=== PATIENT | female | born 1945 | race Caucasian/White ===

== ENCOUNTER → 2020-05-23 13:20 | Outpatient (BNVA) | payer MEDICARE, SELFPAY | PROVIDERS: Visit Provider Internal Medicine | DX: A49.01 Methicillin susceptible Staphylococcus aureus infection, unspecified site (principal); T84.59XA Infection and inflammatory reaction due to other internal joint prosthesis, initial encounter; E11.65 Type 2 diabetes mellitus with hyperglycemia; Z79.899 Other long term (current) drug therapy | CPT/HCPCS: 99212 ==

== ENCOUNTER → 2020-06-27 14:07 | Outpatient (BNVA) | payer MEDICARE, SELFPAY | PROVIDERS: Visit Provider Internal Medicine Cardiovascular Disease | DX: R60.0 Localized edema (principal); I51.89 Other ill-defined heart diseases; I25.10 Atherosclerotic heart disease of native coronary artery without angina pectoris; Z79.82 Long term (current) use of aspirin; Z79.899 Other long term (current) drug therapy | CPT/HCPCS: 99212 ==

== ENCOUNTER 2020-06-28 07:18 | Outpatient (REF) | payer MEDICARE, SELFPAY ==
[2020-06-28 11:44] LABS: B Type Natriuretic Peptide 56 pg/mL (<100)
[2020-06-28 12:05] LABS: Anion Gap 14 (12-20); Blood Urea Nitrogen 26 mg/dL (9-16); Calcium 8.9 mg/dL (8.4-10.2); Carbon Dioxide 25 mmol/L (22-29); Chloride 108 mmol/L (96-108); Estimated Glomerular Filt Rate > 60; Glucose Random 126 mg/dL (60-115); Potassium 4.3 mmol/l (3.3-5.1); Sodium 143 mmol/L (135-145)
== END 2020-06-28 07:19 | disposition home or self-care (01) ==
LOC: HO.WFDLDS 07:18
PROVIDERS: Visit Provider Internal Medicine Cardiovascular Disease
DX: I50.30 Unspecified diastolic (congestive) heart failure (principal); R60.0 Localized edema; I10 Essential (primary) hypertension
CPT/HCPCS: 80048; 83880

== ENCOUNTER → 2020-09-08 13:21 | Outpatient (BNVA) | payer MEDICARE, SELFPAY | PROVIDERS: PCP Internal Medicine; Visit Provider Surgery Vascular Surgery | DX: R60.0 Localized edema (principal); I83.11 Varicose veins of right lower extremity with inflammation; Z89.431 Acquired absence of right foot | CPT/HCPCS: 99212 ==

== ENCOUNTER 2020-09-13 10:04 | Outpatient (REF) | payer MEDICARE, SELFPAY ==
--- NOTE | ~2020-09-13 | US_ITS ---
EXAMINATION: RIGHT and LEFT LOWER EXTREMITY VENOUS ULTRASOUND (Reflux Exam) CLINICAL INDICATION: leg pain and varicose veins. COMPARISON: None. TECHNIQUE: Color flow triplex imaging and compression Doppler was performed to evaluate both the deep and the superficial systems bilaterally. To evaluate the superficial system, the examination was performed in the upright position. Color-flow Doppler ultrasound and compression ultrasound were utilized. In addition, maneuvers were utilized to demonstrate reflux. FINDINGS: 1. DEEP VENOUS ULTRASOUND OF THE RIGHT LOWER EXTREMITY: Respiratory variation, normal compression and augmented flow are noted in the right common femoral vein as well as the right popliteal vein and there is no evidence of deep venous thrombosis at these locations. There is no evidence of reflux in the deep system in either the common femoral vein or the popliteal vein. There is no evidence of a Mcneil's cyst. 2. SUPERFICIAL ULTRASOUND WITH DOPPLER OF RIGHT LOWER EXTREMITY: The right great saphenous vein at the saphenofemoral junction measures 1 mm, at the mid thigh 5 mm, [id number]-[id number] 5 mm, xvich-bun-iijc 3 mm, at mid calf 4 mm and at the ankle measures 4 mm. There is right greater saphenous vein reflux measuring 1.5 seconds at the mid thigh, 1.4 seconds below the knee, 0.9 seconds in the mid calf and 1 seconds at the ankle. The right small saphenous vein measures 1-2 mm and shows no reflux. There is an accessory lateral greater saphenous vein that measures 4 mm and does not demonstrate reflux. There is a geographic information systems manager in the mid thigh that measures 3 mm and does not demonstrate reflux. There is a varicosity at the knee that measures 3 mm and does not demonstrate reflux. There is a right Mcneil's cyst measuring 2.9 x 1.6 x 1.7 cm. 3. DEEP VENOUS ULTRASOUND OF THE LEFT LOWER EXTREMITY: Respiratory variation, normal compression and augmented flow are noted in the left common femoral vein as well as the left popliteal vein and there is no evidence of deep venous thrombosis at these locations. There is no evidence of reflux in the deep system in either the common femoral vein or the popliteal vein. . There is no evidence of a Mcneli's cyst. 4. SUPERFICIAL ULTRASOUND WITH DOPPLER OF LEFT LOWER EXTREMITY: Left great saphenous vein at the saphenofemoral junction measures 11 mm, at the mid thigh 5 mm, [id number] 4 mm, kybep-exr-dlhe 4 mm, at mid calf 4 mm and at the ankle measures 3 mm. There is no reflux demonstrated in the left great saphenous vein. The left small saphenous vein measures 2-4 mm and shows no reflux. There is a accessory lateral greater saphenous vein that measures 4 mm and does not demonstrate reflux. There are perforators in the proximal thigh and proximal calf measuring 2 and 3 mm that do not demonstrate reflux. There is a complex Mcneil's cyst measuring 5 x 1.7 x 4.1 cm. There is edema of the soft tissues of the left lower leg. US/US venous duplex LE BI IMPRESSION: 1. No evidence of reflux or thrombus in the common femoral veins or popliteal veins bilaterally. 2. right greater saphenous vein reflux. No left saphenous vein reflux seen. Bilateral Mcneil's cysts, left greater than right.
== END 2020-09-13 10:05 | disposition home or self-care (01) ==
LOC: HO.US 10:04
PROVIDERS: Visit Provider Surgery Vascular Surgery
DX: I83.893 Varicose veins of bilateral lower extremities with other complications (principal); I83.11 Varicose veins of right lower extremity with inflammation
CPT/HCPCS: 93970

== ENCOUNTER → 2020-09-27 12:50 | Outpatient (BNVA) | payer MEDICARE, SELFPAY | PROVIDERS: PCP Internal Medicine; Visit Provider Surgery Vascular Surgery | DX: R60.0 Localized edema (principal) | CPT/HCPCS: 99212 ==

== ENCOUNTER 2020-09-28 08:00 | Outpatient (REF) | payer MEDICARE, SELFPAY ==
[2020-09-28 11:19] LABS: MANUAL DIFF FLAG NO
[2020-09-28 11:33] LABS: Basophils Percent Auto 0.4 % (0-2); Eosinophils Percent Auto 0.4 % (0-4); Hematocrit 33.5 % (37-47); Hemoglobin 10.7 g/dl (12.0-16.0); Imm Gran Abs Auto 0.01 X10*3/uL (0.00-0.03); Imm Gran Pct Auto 0.2 % (0.0-0.4); Immature Retic Fraction 15.5 % (3.0-15.9); Lymphocytes Percent Auto 18.8 % (20-40); Mean Corpuscular HGB Conc 31.9 g/dl (31.0-35.0); Mean Corpuscular Hemoglobin 28.3 pg (27.0-33.0); Mean Corpuscular Volume 88.6 fL (80-98); Mean Platelet Volume 10.2 fL (9.4-12.3); Monocytes Absolute Auto 0.4 X10*3/uL (0.1-1.2); Monocytes Percent Auto 7.2 % (2-11); Neutrophils Absolute Auto 4.1 X10*3/uL (2.0-8.3); Platelet Count 186 X10*3/uL (160-400); Red Blood Count 3.78 X10*6/uL (4.20-5.50); Red Cell Distribution Width 13.6 % (11.0-16.0); Retic HGB Equivalent 32.8 pg (30.0-35.0); Reticulocyte Percent 2.7 % (0.5-1.8); Reticulocytes Absolute 0.102 X10*6/uL (0.026-0.095); White Blood Count 5.5 X10*3/uL (4.8-10.8)
[2020-09-28 11:43] LABS: Estimated Average Glucose 143 mg/dL; Hemoglobin A1c % 6.6 %
[2020-09-28 11:56] LABS: Cholesterol 152 mg/dL; HDL Cholesterol 48 mg/dL; Iron 67 mcg/dL (30-160); LDL Cholesterol Calculated 79 mg/dl; Percent Iron Saturation 24 % (15-50); Total Iron Binding Capacity 283 mcg/dL (228-428); Triglycerides 125 mg/dL; Unsaturated Iron Binding 216 ug/dL
[2020-09-28 12:27] LABS: Free T4 (Free Thyroxine) 1.58 ng/dL (0.71-1.85); Thyroid Stimulating Hormone 0.26 uIU/mL (0.32-4.0)
[2020-09-28 13:08] LABS: Ferritin 126 ng/mL (10-250)
[2020-09-29 19:39] LABS: Vitamin B12 394 pg/mL (200-900)
== END 2020-09-28 08:01 | disposition home or self-care (01) ==
LOC: HO.WFDLDS 08:00
PROVIDERS: Visit Provider Internal Medicine
DX: I10 Essential (primary) hypertension (principal); E03.9 Hypothyroidism, unspecified; E78.00 Pure hypercholesterolemia, unspecified; E11.65 Type 2 diabetes mellitus with hyperglycemia
CPT/HCPCS: 36415; 80061; 82607; 82728; 82746; 83036; 83540; 84439; 84443; 85025; 85045

== ENCOUNTER → 2020-10-14 09:27 | Outpatient (BNVA) | payer MEDICARE, SELFPAY | PROVIDERS: PCP Internal Medicine; Visit Provider Internal Medicine Cardiovascular Disease | DX: I25.10 Atherosclerotic heart disease of native coronary artery without angina pectoris (principal) | CPT/HCPCS: 99212 ==

== ENCOUNTER 2021-01-26 09:14 | Outpatient (REF) | payer MEDICARE, SELFPAY ==
--- NOTE | ~2021-01-26 | MM_ITS ---
EXAMINATION: MM SCREENING DIGITAL BREAST TOMOSYNTHESIS, BILATERAL CLINICAL INFORMATION: Screening. Asymptomatic. The lifetime risk of breast cancer based on the Tyrer-Cuzick Model is 4%. COMPARISON: Mammography: 12/11/2018, 02/19/2017, 02/02/2016 TECHNIQUE: Digital breast tomosynthesis is performed in both the craniocaudal and mediolateral oblique views along with computer-aided detection (CAD). Synthesized 2D images are generated from the tomosynthesis. FINDINGS: There are scattered areas of fibroglandular density (ACR BI-RADS breast composition Category b). The left breast has new focal asymmetric density with irregular margins posterior 9:30 o'clock position measuring 0.9 x 0.6 x 0.3 cm. Patient will be recalled for additional imaging. The remainder of the bilateral breasts show no interval mass or developing density or architectural abnormality. Again, there are bilateral vascular and some scattered round and ductal secretory calcifications. The axilla and skin contours are unremarkable. MM/MM tomosynthesis screening BI IMPRESSION: 1. Left: New focal asymmetric density posterior inner quadrant under 1 cm. 2. Right: No mammographic evidence of malignancy. ASSESSMENT: BI-RADS 0: Incomplete - Need Additional Imaging Evaluation RECOMMENDATION: 1. Additional views of the left breast (3-D spot CC, 3-D spot ML). 2. Targeted ultrasound left breast. 3. Radiology department staff will contact the patient for additional imaging. This patient's information was entered into a reminder system with a target due date for their next mammogram.
== END 2021-01-26 09:15 | disposition home or self-care (01) ==
LOC: HO.MAMMO 09:14
PROVIDERS: PCP Internal Medicine; Visit Provider Internal Medicine
DX: Z12.31 Encounter for screening mammogram for malignant neoplasm of breast (principal)
CPT/HCPCS: 77063; 77067

== ENCOUNTER 2021-02-21 11:38 | Outpatient (REF) | payer MEDICARE, SELFPAY ==
--- NOTE | ~2021-02-21 | MM_ITS ---
EXAMINATION: MM DIAGNOSTIC DIGITAL BREAST TOMOSYNTHESIS, LEFT US DIAGNOSTIC ULTRASOUND BREAST, LEFT CLINICAL INFORMATION: Recall from screening for focal asymmetric density posterior inner quadrant left breast. COMPARISON: Mammography: 01/26/2021, 12/11/2018 TECHNIQUE: Digital breast tomosynthesis is performed. 2D images are generated from the tomosynthesis. The following views are obtained: Spot CC x0, spot ML x3, MLO. Ultrasound left breast is targeted to the inner quadrant. Grayscale imaging and color Doppler are performed without and with harmonics. FINDINGS: There are scattered areas of fibroglandular density (ACR BI-RADS breast composition Category b). The additional views show no persistent focal asymmetric density. There is no mass or architectural abnormality. Ultrasound demonstrates no cystic or solid mass or architectural abnormality. Results are discussed with the patient at time of visit. As a precaution, short interval six-month follow-up left mammography will be recommended to exclude remote possibility of an occult developing density in the area of recent interest. MM/MM tomosynthesis added views L IMPRESSION: 1. Additional mammographic views show no persistent focal asymmetric density. 2. Unremarkable targeted left breast ultrasound. ASSESSMENT: BI-RADS 3: Probably Benign RECOMMENDATION: Diagnostic left mammography in 6 months. This patient's information was entered into a reminder system with a target due date for their next mammogram.
== END 2021-02-21 11:39 | disposition home or self-care (01) ==
LOC: HO.MAMMO 11:38
PROVIDERS: Visit Provider Internal Medicine
DX: R92.2 Inconclusive mammogram (principal)
CPT/HCPCS: 76642; 77061; 77065

== ENCOUNTER 2021-10-24 09:16 | Outpatient (REF) | payer MEDICARE, SELFPAY ==
--- NOTE | ~2021-10-24 | MM_ITS ---
EXAMINATION: MM DIAGNOSTIC DIGITAL BREAST TOMOSYNTHESIS, LEFT CLINICAL INFORMATION: Six-month follow-up left breast density COMPARISON: Mammography: February 21, 2021 and studies dating back to July 22, 2012 TECHNIQUE: Digital breast tomosynthesis is performed in both the craniocaudal and mediolateral oblique views along with computer-aided detection (CAD). Synthesized 2D images are generated from the tomosynthesis. FINDINGS: The breasts are almost entirely fatty (ACR BI-RADS breast composition Category a). There are no significant masses, abnormal calcifications, or other abnormalities. Results are provided to the patient at time of visit by the technologist. MM/MM tomosynthesis diagnostic LT IMPRESSION: No mammographic evidence of malignancy. ASSESSMENT: BI-RADS 1: Negative RECOMMENDATION: Routine annual mammography screening, due in 6 months. This patient's information was entered into a reminder system with a target due date for their next mammogram.
== END 2021-10-24 09:17 | disposition home or self-care (01) ==
LOC: HO.MAMMO 09:16
PROVIDERS: PCP Internal Medicine; Visit Provider Internal Medicine
DX: R92.2 Inconclusive mammogram (principal)
CPT/HCPCS: 77061; 77065

== ENCOUNTER 2022-01-03 09:44 | Outpatient (REF) | payer MEDICARE, SELFPAY ==
[2022-01-03 11:05] LABS: MANUAL DIFF FLAG NO
[2022-01-03 11:34] LABS: Basophils Percent Auto 0.2 % (0-2); Hemoglobin 11.1 g/dl (12.0-16.0); Imm Gran Abs Auto 0.02 X10*3/uL (0.00-0.03); Imm Gran Pct Auto 0.3 % (0.0-0.4); Lymphocytes Absolute Auto 0.9 X10*3/uL (1.2-4.9); Lymphocytes Percent Auto 14.7 % (20-40); Mean Corpuscular HGB Conc 32.6 g/dl (31.0-35.0); Mean Corpuscular Volume 91.9 fL (80.0-98.0); Mean Platelet Volume 10.7 fL (9.4-12.3); Monocytes Absolute Auto 0.4 X10*3/uL (0.1-1.2); Monocytes Percent Auto 6.6 % (2-11); Neutrophils Percent Auto 78.2 % (45-73); Platelet Count 174 X10*3/uL (160-400); Red Cell Distribution Width 13.5 % (11.0-16.0); White Blood Count 6.4 X10*3/uL (4.8-10.8)
[2022-01-03 11:38] LABS: Estimated Average Glucose 140 mg/dL; Hemoglobin A1c % 6.5 %
[2022-01-03 11:41] LABS: Alanine Aminotransferase 19 U/L (0-31); Albumin Level 4.2 g/dL (3.5-5.0); Alkaline Phosphatase 101 U/L (39-117); Anion Gap 14 (12-20); Aspartate Amino Transferase 17 U/L (5-31); Bilirubin Total 0.5 mg/dL (0.0-1.0); Blood Urea Nitrogen 30 mg/dL (9-16); Calcium 9.9 mg/dL (8.4-10.2); Carbon Dioxide 23 mmol/L (22-29); Chloride 110 mmol/L (96-108); Cholesterol 141 mg/dL; Estimated Glomerular Filt Rate 60; Glucose Random 122 mg/dL (60-115); HDL Cholesterol 49 mg/dL; LDL Cholesterol Calculated 70 mg/dl; Potassium 5.1 mmol/L (3.3-5.1); Sodium 142 mmol/L (135-145); Total Protein 6.6 g/dL (6.5-8.0); Triglycerides 112 mg/dL
[2022-01-03 12:08] LABS: Free T4 (Free Thyroxine) 1.58 ng/dL (0.71-1.85); Thyroid Stimulating Hormone 0.51 uIU/mL (0.32-4.0); Vitamin D 25-OH Total 31.6 ng/mL (>30)
[2022-01-03 12:16] LABS: Folate 14.9 ng/mL (> or = 4.0); Vitamin B12 431 pg/mL (200-900)
== END 2022-01-03 09:45 | disposition home or self-care (01) ==
LOC: HO.WFDLDS 09:44
PROVIDERS: Visit Provider Internal Medicine
DX: E11.65 Type 2 diabetes mellitus with hyperglycemia (principal); E78.00 Pure hypercholesterolemia, unspecified; M81.0 Age-related osteoporosis without current pathological fracture
CPT/HCPCS: 36415; 80053; 80061; 82306; 82607; 82746; 83036; 84439; 84443; 85025

== ENCOUNTER → 2022-01-23 12:20 | Outpatient (BNVA) | payer MEDICARE, SELFPAY | PROVIDERS: PCP Internal Medicine; Referring Provider Internal Medicine; Visit Provider Internal Medicine Cardiovascular Disease | DX: I35.0 Nonrheumatic aortic (valve) stenosis (principal); I25.10 Atherosclerotic heart disease of native coronary artery without angina pectoris | CPT/HCPCS: 93005; 99212 ==

== ENCOUNTER → 2022-04-02 09:32 | Outpatient (REF) | payer MEDICARE, SELFPAY ==
--- NOTE | 2022-04-02 09:34 | CA_ITS ---
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 Normal LV systolic function with mild LVH with impaired relaxation filling pattern 2. Mild aortic stenosis 3. Normal RV systolic pressure 4. No gross pericardial effusion Findings Left Ventricle Normal left ventricular size and systolic function. There is mildly increased left ventricular wall thickness. The visually estimated ejection fraction is between 60-65%. Spectral Doppler is indicative of an impaired relaxation filling pattern. E/E prime ratio is between 8 and 15 consistent with indeterminate filling pressures. Right Ventricle Normal right ventricular cavity size and systolic function. Atria The left atrium is normal in size. Interatrial shunt cannot be excluded. The right atrium is normal in size. Aortic Valve There is mild calcification of the aortic valve. There is mild aortic valve stenosis. The peak aortic gradient is 25 mmHg.The mean gradient is 14 mmHg. The aortic valve area is 1.76 cm2. There is no aortic valve regurgitation. Mitral Valve There is mild anterior and moderate posterior mitral leaflet thickening. There is moderate mitral annular calcification. There is trace mitral valve regurgitation. There is no mitral valve stenosis. Pulmonic Valve The pulmonic valve was not well visualized. Tricuspid Valve Likely normal tricuspid valve structure and function. There is mild tricuspid valve regurgitation. The right ventricular systolic pressure is normal. The right ventricular systolic pressure is 26 mmHg. Normal right atrial pressure. There is no evidence of pulmonary hypertension. Great Vessels All visible segments of the aorta are normal in size. The pulmonary artery was not well visualized. Venous The inferior vena cava is normal in size and collapses greater than 50% with inspiration. Pericardium/Pleural There is no evidence of pericardial effusion. Prior Study Comparison No significant change compared to prior study dated: 02/16/2019. Measurements 2D Linear Measurements IVSd: 1.23 0.6-0.9/0.6-1.0 cm LVIDd: 5.14 3.9-5.3/4.2-5.9 cm LVIDd Index: 2.50 2.4-3.2/2.2-3.1 cm/m2 LVIDs: 3.18 2.0-3.6 cm LVPWd: 1.22 0.7-1.1 cm Ao Root: 3.00 2.1-3.5 cm LA Diam: 4.40 2.7-3.8/3.0-4.0 cm LAIDs Index: 2.14 1.5-2.3 cm/m2 LV Mass: 313.51 67-162/88-224 g LV Mass Index: 152.19 43-95/49-115 g/m2 LVOT Diam: 2.10 3.0+(-)1.3 cm Mitral Valve MV VTI: 0.45 MV Pk Gonzalez: 1.46 MV Mn Gonzalez: 0.89 MV Pk Grad: 9.00 MV Mn Grad: 4.00 MV Pk E: 1.23 MV PK A: 1.25 MV Decel Time: 144.00 E/A: 1.00 E'Lateral: 7.94 E'Medial: 6.53 E/E' Med: 18.80 E/E' Lat: 15.50 PHT: 42.00 MVA PHT: 5.24 MVA Continuity: 2.42 Decel [place]: 8.53 Aortic Valve AoV Pk Gonzalez: 2.50 AoV Mn Gonzalez: 1.74 AoV VTI: 0.62 AoV Pk Grad: 25.00 Aov Mn Grad: 14.00 PIYUSH Cont.VTI: 1.76 LVOT LVOT Pk Gonzalez: 1.22 LVOT Mn Gonzalez: 0.87 LVOT VTI: 0.32 LVOT Pk Grad: 6.00 LVOT Mn Grad: 3.00 LVOT Diam: 2.10 LVOT Area: 3.46 Diastolic Function MV Pk E: 1.23 MV Pk A: 1.25 E/A: 1.00 E'Medial: 6.53 E/E' Med: 18.80 E' Laterial: 7.94 E/E' Lat: 15.50 Right Ventricle TAPSE (mm): 34.00 TVS' Gonzalez: 12.00 Tricuspid Valve TR Pk Gonzalez: 2.41 TR Pk Grad: 23.00 RA Press: 3.00 RVSP: 26.00 Great Vessels Aorta Ao Root-2D: 3.00 2.0-3.7 cm Ao Asc: 3.40 2.1-3.4 cm Pulmonary Valve PV Pk Gonzalez: 1.13 Peak PV Grad: 5.00 Updated in Other Vendor System with Status of Final Ramirez Sorenson MD electronically signed on 04/02/2022 4:47:30 PM with status of Final
== END ==
LOC: HO.CARD 09:32
PROVIDERS: PCP Internal Medicine; Visit Provider Internal Medicine
DX: I35.0 Nonrheumatic aortic (valve) stenosis (principal)
CPT/HCPCS: 93306

== ENCOUNTER 2023-03-06 08:21 | Outpatient (REF) | payer MEDICARE, SELFPAY ==
--- NOTE | ~2023-03-06 | MM_ITS ---
EXAMINATION: MM SCREENING DIGITAL BREAST TOMOSYNTHESIS, BILATERAL CLINICAL INFORMATION: Screening. Asymptomatic. The lifetime risk of breast cancer based on the Tyrer-Cuzick Model is 2.9%. COMPARISON: Mammography: This study is compared with prior exams dating back to 2019. TECHNIQUE: Digital breast tomosynthesis is performed in both the craniocaudal and mediolateral oblique views along with computer-aided detection (CAD). Synthesized 2D images are generated from the tomosynthesis. FINDINGS: The breasts are almost entirely fatty (ACR BI-RADS breast composition Category a). There are no significant masses, abnormal calcifications, or other abnormalities. Few, bilateral benign calcifications are present in each breast. MM/MM tomosynthesis screening BI IMPRESSION: No mammographic evidence of malignancy. ASSESSMENT: BI-RADS BI-RADS 2 - Benign Findings RECOMMENDATION: Routine annual mammography screening. 1 year F/U This examination should not preclude the clinical evaluation of a suspicious palpable abnormality. This patient's information was entered into a reminder system with a target due date for their next mammogram.
--- NOTE | ~2023-03-06 | MM_ITS ---
EXAMINATION: BONE DENSITOMETRY CLINICAL INDICATION: Age-related osteoporosis without current pathological fracture. COMPARISON: Previous BD dated 02/02/2016 and baseline BD dated 12/05/2006. TECHNIQUE: Using a [employer] DXA System (software version: 13.1) manufactured by [employer], dual-energy x-ray absorptiometry was performed of the lumbar spine and left hip. The images are of good technical quality. Summary results are attached. FINDINGS: LEFT FEMUR, NECK: Current: BMD 0.841 g/cm2, Z-score -0.2, T-score -1.4, osteopenia. Prior: BMD 0.928 g/cm2. Baseline: BMD 1.063 g/cm2. LEFT FEMUR, TOTAL: Current: BMD 0.983 g/cm2, Z-score 0.8, T-score -0.2, normal, 10.6% decrease from previous, 22.7% decrease from baseline (<5% change is not significant). Prior: BMD 1.099 g/cm2. Baseline: BMD 1.272 g/cm2. AP SPINE L1-L3 (excluding L4): The data of L1-L4 has been changed to exclude the L4 vertebral body, because degenerative sclerosis at this level may cause overestimation of lumbar spine density. Current: BMD 1.557 g/cm2, Z-score 3.8, T-score 3.2, normal, 9.2% increase from previous, 17.4% increase from baseline (<5% change is not significant). Prior: BMD 1.426 g/cm2. Baseline: BMD 1.326 g/cm2. IDENTIFIED RISK FACTORS: Early menopause, secondary osteoporosis, hysterectomy, bilateral oophorectomy, glucocorticoids (chronic), history of fracture (adult). HISTORY OF FRACTURE: Humerus. MEDICATIONS: Vitamin D. MM/XR DEXA axial skeleton IMPRESSION: 1. DIAGNOSIS: Osteopenia based on the lowest T-score value of -1.4 in the femoral neck applying World Health Organization criteria. 2. 10-YEAR FRACTURE RISK PREDICTION, FRAX: Major osteoporotic fracture (clinical spine, forearm, hip or shoulder) 23.6%. Hip fracture 4.9%. 3. Treatment Recommendations: NOF guidelines recommend consideration for treatment in postmenopausal women and men age 50 and older presenting with the following: -A hip or vertebral (clinical or morphometric) fracture. -T-score less than or equal to -2.5 at the femoral neck or spine after appropriate evaluation to exclude secondary causes. -Low bone mass at the hip or spine and a 10-year fracture probability by FRAX of greater than or equal to 3% for hip fracture or greater than or equal to 20% for major osteoporotic fracture based on the [place] adapted WHO algorithm. 4. Other Recommendations: All treatment decisions require clinical judgment and consideration of individual patient factors, including patient preferences, comorbidities, previous drug use, risk factors not captured in the FRAX model (e.g. frailty, falls, vitamin D deficiency, increased bone turnover, interval significant decline in bone density) and possible under or overestimation of fracture risk by FRAX. Additional medical evaluation for secondary cause of low bone mineral density may be appropriate. FUTURE SCAN RECOMMENDATION: People with diagnosed cases of osteoporosis or at high risk for fracture should have regular bone mineral density tests. For patients eligible for Medicare, routine testing is allowed once every 2 years. The testing frequency can be increased to one year for patients who have rapidly progressing disease, those who are receiving or discontinuing medical therapy to restore bone mass, or have additional risk factors.
== END 2023-03-06 08:22 | disposition home or self-care (01) ==
LOC: HO.MAMMO 08:21
PROVIDERS: PCP Internal Medicine; Visit Provider Internal Medicine
DX: Z12.31 Encounter for screening mammogram for malignant neoplasm of breast (principal); Z13.820 Encounter for screening for osteoporosis; M81.0 Age-related osteoporosis without current pathological fracture; Z78.0 Asymptomatic menopausal state
CPT/HCPCS: 77063; 77067; 77080

== ENCOUNTER → 2023-03-06 08:45 | Outpatient (BNV) | payer MEDICARE, SELFPAY | PROVIDERS: PCP Internal Medicine; Visit Provider Radiology Diagnostic Radiology | DX: Z12.31 Encounter for screening mammogram for malignant neoplasm of breast (principal) | CPT/HCPCS: 77063; 77067; 77080 ==

== ENCOUNTER 2023-04-01 08:17 | Outpatient (AMB) | payer MEDICARE, SELFPAY ==
[2023-04-01 08:27] VITALS: BP 134/60; PULSE 67; BMI 39.5
--- NOTE | 2023-04-01 08:27 | A.OFFVIS_ITS ---
Intake Vital Signs 04/01/23 08:27 Height 5 ft 5 in Weight 237 lb 10.533 oz BMI 39.5 BP 134/60 Blood Pressure Location Lt brachial Position Sitting Pulse 67 Pulse Source Monitor Intake Visit Reasons: 1 year fu Intake Note: 1 year follow up with EKG. 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: No Accompanied by: Self / Same As Patient Allergies Iodinated Contrast Media [IV CONTRAST] Allergy (Intermediate, Verified 04/01/23 08:31) LOCALIZED ARM SWELLING/REDNESS/ITCHING Doxycycline Hyclate Allergy (Unknown, Uncoded 04/01/23 08:31) rash previous antibiotic Allergy (Unknown, Uncoded 04/01/23 08:31) unkown CT SCAN DYE Adverse Reaction (Unknown, Uncoded 04/01/23 08:31) itching Medication List - Last Reconciled 04/01/23 by Ramirez Sorenson MD amlodipine 5 mg PO DAILY anastrozole 1 mg PO DAILY ascorbic acid (vitamin C) 500 mg PO BID aspirin (Ecotrin Low Strength) 81 mg PO DAILY atorvastatin 80 mg PO DAILY blood sugar diagnostic (FreeStyle Lite Strips) As directed blood-glucose meter (FreeStyle Lite Meter kit) test daily celecoxib 200 mg PO BID 30 days cholecalciferol (vitamin D3) 25 mcg PO DAILY 90 days [Diabetic shoe inserts As directed] ferrous sulfate 324 mg PO BID gabapentin 300 mg PO BEDTIME 90 days glipizide ER 5 mg PO DAILY lancets As directed levothyroxine 175 mcg PO QAM 90 days lisinopril 40 mg PO DAILY megestrol 80 mg PO BID metformin 1,000 mg PO BID metoprolol tartrate 25 mg PO BID HPI HPI Comments History of Present Illness Details Rasheeda after 1 year. She continues to have no cardiac symptoms. She is doing well from cardiac perspective without any symptoms exertional chest pain or shortness of breath. She only gets short of breath when she climbs a flight of stairs. She is not walking with help of a walker but finds no restriction to activity level. Denies any prolonged palpitations or irregular heartbeat. No lightheadedness, syncope. No heart failure symptoms. Takes all her medications. Recent lipid panel shows LDL of 70 mg/dL. [facility] Medical History Aortic stenosis CAD (coronary artery disease) Cholelithiasis Diastolic dysfunction Endometrial adenocarcinoma Foot osteomyelitis, right HTN (hypertension) Knee osteoarthritis Lung cancer Methicillin susceptible Staphylococcus aureus infection Obesity (BMI 30-39.9) Prosthetic shoulder infection Type 2 diabetes mellitus with hyperglycemia Vitamin D deficiency Surgical History History of cardiac catheterization (~2019) Right humeral fracture S/P FABBY-BSO Status post right foot surgery Family History Father No problems noted. Mother No problems noted. Social History Housing: House Alcohol intake: current Alcohol intake frequency: 3 or more drinks per day Patient Tobacco Use Status: Never used Tobacco e-Cigarette/Vaping Use: Never Used Second Hand Smoke Exposure: No service: No Current occupational status: retired Cognitive needs: No Hearing needs: No Vision needs: Yes Review of Systems Const Denies weakness ENT Denies dizziness Card Denies chest pain, Denies chest pain with activity, Denies syncope, Denies rapid heart rate, Denies pedal edema, Denies edema, Denies leg edema, Denies lightheadedness, Denies palpitations, Denies dyspnea, Denies dyspnea on exertion and Denies orthopnea Resp Denies cough, Denies dyspnea and Denies dyspnea on exertion GI Denies hematochezia and Denies change in stool character Musc Denies abnormal gait, Denies muscle cramps, Denies muscle weakness, Denies nu mbness, Denies radiating pain into limb and Denies tingling Neuro Denies abnormal gait, Denies dizziness, Denies syncope, Denies numbness, Denies tingling and Denies weakness Endo Denies palpitations Physical Exam Vital Signs: BMI result Body Mass Index 39.5 Const General: cooperative, comfortable, no acute distress, alert, awake and well groomed Nutritional Appearance: obese Orientation/consciousness: patient oriented x3 Limitations: ambulation with walker Neck Neck: Yes trachea midline, Yes supple and Yes no JVD Resp Effort & Inspection: normal respiratory effort Auscultation: clear to auscultation bilaterally Cardio Jugular venous distension: no JVD Palpation: normal PMI Rate: regular rate Rhythm: regular rhythm Heart sounds: S1 normal heart sound present, S2 normal heart sound present and Murmur heart sound present systolic early and decrescendo Skin General skin exam: no rashes or lesions noted Neuro General: patient oriented x3 and no focal motor deficits Extrem General: Yes no clubbing, cyanosis or edema Psych Appearance: grossly normal Office Procedures EKG Details: EKG shows normal sinus rhythm with normal EKG with borderline low voltage [id number], Complete Assessment & Plan Assessment & Plan (1) CAD (coronary artery disease): Comment: Echo on February 2019 EF 55-60%, nuclear stress test March 2019 old intensity septal and apical ischemia, ischemic dilatation present Code(s): I25.10 - Atherosclerotic heart disease of [place] coronary artery without angina pectoris Qualifiers: Coronary Disease-Associated Artery/Lesion type: [place] artery [place] vs. transplanted heart: [place] heart Associated angina: without angina Qualified Code(s): I25.10 - Atherosclerotic heart disease of [place] coronary artery without angina pectoris Plan: CAD which is stable with branch vessel disease no new current symptoms at this point time. She has done well with current medical therapy. Continue the same. Continue low-dose aspirin therapy for life. Continue dual antianginal therapy. Advised to call with any new symptoms. Continue aggressive vascular risk factor modification. Blood pressure is currently well optimized target goal blood pressure less than 130/84. LDL is well optimized. Diabetes under your care with goal hemoglobin A1c less than 7%. Encouraged to participate in physical activity as tolerated. (2) Aortic stenosis: Comment: March 2022. Normal LV systolic function with mild LVH with impaired relaxation filling pattern 2. Mild aortic stenosis 1.79 3. Normal RV systolic pressure 4. No gross pericardial effusion Code(s): I35.0 - Nonrheumatic aortic (valve) stenosis Qualifiers: Cardiac valve disease etiology: nonrheumatic Qualified Code(s): I35.0 - Nonrheumatic aortic (valve) stenosis Plan: Aortic stenosis which is mild. Continue to monitor but clinically. Will follow-up echocardiogram next year. Continue aggressive vascular risk factor modifications above. Discuss pathophysiology of sick stenosis and gradual progression over time. She understands and agrees. No interventions besides medical therapy required at this point time. Will follow up in the clinic in 1 year's time, sooner p.r.n.. Thank you for allowing me to partake in her care Orders: Orders CA echo transthoracic complete 52 Weeks I35.0 - Nonrheumatic aortic (valve) stenosis Medications: New aspirin (Ecotrin Low Strength) 81 mg PO DAILY 20 tabs 0RF Coding Level of Care Code Est Pt Level 4 (35899) Diagnoses CAD (coronary artery disease) I25.10 Coronary Disease-Associated Artery/Lesion type: [place] artery [place] vs. transplanted heart: [place] heart Associated angina: without angina Aortic stenosis I35.0 Cardiac valve disease etiology: nonrheumatic CPT Codes EKG - CPT: [id number], Complete ([id number])
== END 2023-04-01 08:48 | disposition home or self-care (01) ==
PROVIDERS: PCP Internal Medicine; Referring Provider Internal Medicine; Visit Provider Internal Medicine Cardiovascular Disease
DX: I25.10 Atherosclerotic heart disease of native coronary artery without angina pectoris (principal); I35.0 Nonrheumatic aortic (valve) stenosis
CPT/HCPCS: 93010; 99214

== ENCOUNTER → 2023-04-01 08:17 | Outpatient (BNVA) | payer MEDICARE, SELFPAY | PROVIDERS: PCP Internal Medicine; Referring Provider Internal Medicine; Visit Provider Internal Medicine Cardiovascular Disease | DX: I25.10 Atherosclerotic heart disease of native coronary artery without angina pectoris (principal); I35.0 Nonrheumatic aortic (valve) stenosis; Z79.82 Long term (current) use of aspirin; Z79.899 Other long term (current) drug therapy | CPT/HCPCS: 93005; 99212 ==

== ENCOUNTER 2023-06-13 09:49 | Outpatient (AMB) | payer MEDICARE, SELFPAY ==
--- NOTE | 2023-06-13 09:51 | A.OFFPC_ITS ---
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: No Accompanied by: Self / Same As Patient Allergies Iodinated Contrast Media [IV CONTRAST] Allergy (Intermediate, Verified 06/13/23 10:14) LOCALIZED ARM SWELLING/REDNESS/ITCHING Doxycycline Hyclate Allergy (Unknown, Uncoded 04/01/23 08:31) rash previous antibiotic Allergy (Unknown, Uncoded 04/01/23 08:31) unkown CT SCAN DYE Adverse Reaction (Unknown, Uncoded 04/01/23 08:31) itching Medication List - Last Reconciled 06/13/23 by HAMLET Robledo amlodipine 5 mg PO DAILY anastrozole 1 mg PO DAILY ascorbic acid (vitamin C) 500 mg PO BID aspirin (Ecotrin Low Strength) 81 mg PO DAILY atorvastatin 80 mg PO DAILY blood sugar diagnostic (FreeStyle Lite Strips) As directed blood-glucose meter (FreeStyle Lite Meter kit) test daily celecoxib 200 mg PO BID 30 days cholecalciferol (vitamin D3) 25 mcg PO DAILY 90 days [Diabetic shoe inserts As directed] ferrous sulfate 324 mg PO BID gabapentin 300 mg PO BEDTIME 90 days glipizide ER 5 mg PO DAILY lancets As directed levothyroxine 175 mcg PO QAM 90 days lisinopril 40 mg PO DAILY megestrol 80 mg PO BID metformin 1,000 mg PO BID metoprolol tartrate 25 mg PO BID Tobacco use date assessed: 11/01/22 Fall risk assessment: No Falls in past year Last assessed Fall Risk: 06/13/23 Dental Screening Dental Screen Date: 06/13/23 Did you have a dental visit in the last 12 months?: No Did you have a dental problem in the last 6 months where you did not have access to dental care?: No Was dental information given to patient?: Patient has dentist HPI HPI Comments 2 History of Present Illness Details 78-year-old obese female with a history of diabetes mellitus, coronary artery disease hypertension hypothyroidism endometrial carcinoma 2004. Patient presents today for follow-up. Hemoglobin A1c 8.5% , patient reports was recently started on a new cancer medication alex strong 80 mg b.i.d. and she was told by her oncologist that a would increase her appetite. Patient states she has been having increased appetite and has been eating anything she wants and not following a diabetic diet. Discussed importance of following diabetic diet. Patient reports she will follow stricter diabetic diet to decrease her A1c. Patient reminded to get previously ordered lab work completed. [facility] Medical History Aortic stenosis CAD (coronary artery disease) Cholelithiasis Diastolic dysfunction Endometrial adenocarcinoma Foot osteomyelitis, right HTN (hypertension) Knee osteoarthritis Lung cancer Methicillin susceptible Staphylococcus aureus infection Obesity (BMI 30-39.9) Prosthetic shoulder infection Type 2 diabetes mellitus with hyperglycemia Vitamin D deficiency Surgical History Status post right foot surgery S/P FABBY-BSO Right humeral fracture History of cardiac catheterization (~2018) Family History Father No problems noted. Mother No problems noted. Social History Housing: House Alcohol intake: current Alcohol intake frequency: 3 or more drinks per day Patient Tobacco Use Status: Never used Tobacco e-Cigarette/Vaping Use: Never Used Second Hand Smoke Exposure: No service: No Current occupational status: retired Cognitive needs: No Hearing needs: No Vision needs: Yes Questionnaire Thrive Questionnaire Date Thrive assessed: 11/01/22 RIGOBERTO-7 AMB Questionnaire RIGOBERTO-7 Date RIGOBERTO - 7 assessed: 11/01/22 Source: Developed by Drs. Jun Turcios, Madie Amaro, Shola Ramos and colleagues, with an educational sophia from [employer]. Review of Systems Const Denies chills, Denies fatigue, Denies fever(s) and Denies poor appetite Eyes Denies no additional complaints ENT Reports Normal hearing present Card Denies chest pain, Denies syncope, Denies rapid heart rate and Denies dyspnea Resp Denies cough and Denies dyspnea GI Denies change in stool character, Denies constipation, Denies diarrhea, Denies nausea and Denies vomiting Denies urinary frequency, Denies dysuria and Denies urinary urgency Neuro Reports Normal hearing present, Denies confusion and Denies syncope Psych Denies confusion Endo Denies fatigue Physical exam (Primary Care) Vital Signs: Last Vital Signs Pulse 58 06/13/23 09:56 BP 128/62 06/13/23 09:56 Pulse Ox 100 06/13/23 09:56 Oxygen Delivery Method Room Air 06/13/23 09:56 BMI result Body Mass Index 40.1 Tobacco/Smoking Status: Tobacco use Status Tobacco use date assessed 11/01/22 06/13/23 09:52 Patient Tobacco Use Status Never used Tobacco 06/13/23 09:52 e-Cigarette/Vaping Use Never Used 06/13/23 09:52 Thrive Assessment: Date of Thrive Assessment Date Thrive assessed 11/01/22 06/13/23 09:52 Const General: No confusion Orientation/consciousness: No confusion HENMT Head: Yes normocephalic and Yes atraumatic Eyes Conjunctivae: conjunctivae normal Chest Chest palpation & inspection: normal inspection of the chest Resp Effort & Inspection: normal respiratory effort Auscultation: clear to auscultation bilaterally, no crackles, no rhonchi and no wheezes Cardio Rate: regular rate Rhythm: regular rhythm Heart sounds: S1 normal heart sound present and S2 normal heart sound present GI Inspection: Yes normal to inspection Neuro General: No confusion Cranial nerves: Yes Normal hearing present Extrem General: No edema Office Procedures Flu Questionnaire Does the patient have a severe egg allergy?: No Results AMB Hemoglobin A1c AMB Hemoglobin A1c 8.2 % Last Edit by ROBERTA Gomez on 06/13/23 10:0 7 Immunizations flu vacc [id number] 6mos up(PF) 60 mcg(15 mcgx4)/0.5 mL IM syringe Performing Provider: HAMLET Robledo [facility] Documented (not given) by: ROBERTA Gomez on 06/13/23 10:04 Reason Not Given: Received Previously Results Reviewed Results Reviewed: Laboratory Last Values Hgb A1c (Clinic) 8.2 % (4.0-6.0) H 06/13/23 10:04 Assessment and Plan Assessment & Plan (1) Type 2 diabetes mellitus with hyperglycemia: Code(s): E11.65 - Type 2 diabetes mellitus with hyperglycemia Qualifiers: Diabetes mellitus detention insulin use: without detention use Qualified Code(s): E11.65 - Type 2 diabetes mellitus with hyperglycemia Plan: A1c:8.5% Continue on metformin a 1000 mg b.i.d. and glipizide ER 5 mg daily. Patient educated to decrease the amount of carbohydrate intake such as pasta, bread, rice and potatoes are all sugar in addition to the sweet stuff. Remember that fruits are good but they also have sugar.Hemoglobin A1c goal of less than 7.0% Discussed the importance decreasing A1c, and if patient unable to decrease A1c by dietary modifications may need to add an additional medication. Patient verbalizes understanding and states she will follow strict diabetic diet to decrease her A1c. Follow-up in 3 months. (2) HTN (hypertension): Code(s): I10 - Essential (primary) hypertension Qualifiers: Hypertension type: essential hypertension Qualified Code(s): I10 - Essential (primary) hypertension Plan: Blood pressure optimal in office today. Follow low-salt diet /exercise. (3) Hypothyroid: Code(s): E03.9 - Hypothyroidism, unspecified Qualifiers: Hypothyroidism type: acquired Qualified Code(s): E03.9 - Hypothyroidism, unspecified Plan: Continue on levothyroxine (4) Endometrial adenocarcinoma: Comment: 2004, pulmonary nodule 2020 positive Code(s): C54.1 - Malignant neoplasm of endometrium Plan: Continue to follow with Oncology and continue on current medications. (5) Aortic stenosis: Comment: March 2022. Normal LV systolic function with mild LVH with impaired relaxation filling pattern 2. Mild aortic stenosis 1.79 3. Normal RV systolic pressure 4. No gross pericardial effusion Code(s): I35.0 - Nonrheumatic aortic (valve) stenosis Qualifiers: Cardiac valve disease etiology: nonrheumatic Qualified Code(s): I35.0 - Nonrheumatic aortic (valve) stenosis (6) CAD (coronary artery disease): Comment: Echo on February 2019 EF 55-60%, nuclear stress test March 2019 old intensity septal and apical ischemia, ischemic dilatation present Code(s): I25.10 - Atherosclerotic heart disease of [place] coronary artery without angina pectoris Qualifiers: Associated angina: without angina Coronary Disease-Associated Artery/Lesion type: [place] artery [place] vs. transplanted heart: [place] heart Qualified Code(s): I25.10 - Atherosclerotic heart disease of [place] coronary artery without angina pectoris Plan: Continue to follow with Cardiology Orders: Orders AMB Hemoglobin A1c Today E11.65 - Type 2 diabetes mellitus with hyperglycemia Influenza [id number] Immunization Today Z23 - Encounter for immunization Coding Level of Care Code Est Pt Level 4 (88530) Diagnoses Type 2 diabetes mellitus with hyperglycemia, without long-term current use of insulin E11.65 Diabetes mellitus detention insulin use: without detention use Essential hypertension I10 Hypertension type: essential hypertension Acquired hypothyroidism E03.9 Hypothyroidism type: acquired Endometrial adenocarcinoma C54.1 Nonrheumatic aortic valve stenosis I35.0 Cardiac valve disease etiology: nonrheumatic Coronary artery disease involving [place] coronary artery of [place] heart without angina pectoris I25.10 Associated angina: without angina Coronary Disease-Associated Artery/Lesion type: [place] artery [place] vs. transplanted heart: [place] heart
[2023-06-13 09:56] VITALS: BP 128/62; PULSE 58; O2SAT 100; BMI 40.1
== END 2023-06-13 10:26 | disposition home or self-care (01) ==
PROVIDERS: PCP Internal Medicine; Visit Provider Nurse Practitioner Family
DX: E11.65 Type 2 diabetes mellitus with hyperglycemia (principal); C54.1 Malignant neoplasm of endometrium; I10 Essential (primary) hypertension; E03.9 Hypothyroidism, unspecified; Z85.42 Personal history of malignant neoplasm of other parts of uterus; I35.0 Nonrheumatic aortic (valve) stenosis; I25.10 Atherosclerotic heart disease of native coronary artery without angina pectoris
CPT/HCPCS: 83036; 99214

== ENCOUNTER 2023-11-01 09:18 | Outpatient (AMB) | payer MEDICARE, SELFPAY ==
[2023-11-01 09:28] VITALS: BMI 40.1
--- NOTE | 2023-11-01 09:28 | MHC.OFFVIS ---
Intake Vital Signs 11/01/23 09:28 Height 5 ft 5 in Weight 241 lb BMI 40.1 Intake Visit Reasons: N/P rt shoulder s/p sx 12 yrs ago Intake Note: Rasheeda 78 yr old female presents today for a new patient visit for her right shoulder. States pain has been on and off thought out the last 12 years . Hx of shoulder surgery approx [address] Espinoza. States she has lung cancer and was told after her PEC scan to be seen for her shoulder. Currently states she is limited ROM since her sx and has a lot of aches. Allergies Iodinated Contrast Media [IV CONTRAST] Allergy (Intermediate, Verified 11/01/23 09:37) LOCALIZED ARM SWELLING/REDNESS/ITCHING Doxycycline Hyclate Allergy (Unknown, Uncoded 11/01/23 09:37) rash previous antibiotic Allergy (Unknown, Uncoded 11/01/23 09:37) unkown CT SCAN DYE Adverse Reaction (Unknown, Uncoded 11/01/23 09:37) itching HPI N/P rt shoulder s/p sx 12 yrs ago HPI Details 78-year-old female who presents to the office today for evaluation of right shoulder pain s/p shoulder surgery about [address] Espinoza. She currently states she has intermittent pain as well as limited ROM in her shoulder since the surgery. She also c/o a lot of aches in her shoulder. She takes Aleve and Tylenol for her pain. She was diagnosed with lung cancer and was told to be seen for her shoulder after PET scan. [facility] Medical History Aortic stenosis CAD (coronary artery disease) Cholelithiasis Diastolic dysfunction Endometrial adenocarcinoma Foot osteomyelitis, right HTN (hypertension) Knee osteoarthritis Lung cancer Methicillin susceptible Staphylococcus aureus infection Obesity (BMI 30-39.9) Prosthetic shoulder infection Type 2 diabetes mellitus with hyperglycemia Vitamin D deficiency Surgical History Status post right foot surgery S/P FABBY-BSO Right humeral fracture History of cardiac catheterization (~2019) Family History Father No problems noted. Mother No problems noted. Social History (Reviewed 11/01/23 @ 09:29 by SHADE Echevarria Housing: House Alcohol intake: current Alcohol intake frequency: 3 or more drinks per day Patient Tobacco Use Status: Never used Tobacco e-Cigarette/Vaping Use: Never Used Second Hand Smoke Exposure: No service: No Current occupational status: retired Cognitive needs: No Hearing needs: No Vision needs: Yes Review of Systems Const All systems reviewed & are unremarkable except as noted in HPI and below Physical Exam Vital Signs: BMI result Body Mass Index 40.1 Const General: cooperative, healthy appearing, comfortable, no acute distress, well developed and alert Orientation/consciousness: patient oriented x3 HEENT Head: Yes normal to inspection, Yes normocephalic and Yes atraumatic Eyes General: appearance normal, both eyes and all related structures Resp Effort & Inspection: normal respiratory effort and able to speak in complete sentences Cardio Rate: regular rate Peripheral pulses: Peripheral pulses 2+ throughout GI Palpation (GI): Soft to palpation Skin Lesions: no lesions Rashes: no rashes Neuro General: patient oriented x3 Extrem Other: Right shoulder: Incision is healed except for an area along the inferior aspect of the incision which has some serous fluid-this is chronic. Forward flexion is 30 degrees. She can reach her hand to her mouth which barely reaches to the top of her head. NVI. Results Reviewed Results Reviewed: Xrays were obtained in the office today and personally reviewed by me of the right shoulder There is an intact right shoulder arthroplasty. No hardware failure or loosening is seen. There is no periprosthetic fracture. Assessment & Plan Assessment & Plan (1) Prosthetic shoulder infection: Comment: Right shoulder chronic sinus draining MSSA Code(s): T84.59XA - Infection and inflammatory reaction due to other internal joint prosthesis, initial encounter; Z96.619 - Presence of unspecified artificial shoulder joint Qualifiers: Encounter type: subsequent encounter Qualified Code(s): T84.59XD - Infection and inflammatory reaction due to other internal joint prosthesis, subsequent encounter; Z96.619 - Presence of unspecified artificial shoulder joint Plan We had a lengthy discussion about the findings on x-rays which does represent a chronic infection however given her multiple comorbidities such as lung cancer and CV health she would potentially be at a high risk for a revision type surgery for her right shoulder. She has limited mobility and depends on her right shoulder to get around and uses a cane and walker to ambulate. If we consider to perform a revision surgery on her shoulder, she needs to be very minimally weight bearing on her right side which may significantly impact her daily activities. She has been dealing with chronic infection on her right shoulder for approximately 12 years now and never did she get to a point where she is septic and has drainage which comes and goes, so we are going to manage her right shoulder conservatively but if anything comes up where she has increased pain, drainage, and systemic from her chronic infection, she will contact the office, otherwise as needed. Orders: Orders XR shoulder RT min 2V 11/01/23 M25.511 - Pain in right shoulder Patient Instructions: Scribed for Yeison Richardson PA-C, by Oral Galindo site medical director, on 11/01/2023 at 9:30 AM EST. IYeison PA-C, have personally reviewed and agree with the information entered by the scribe. Coding Level of Care Code New Pt Level 3 (22025) Diagnoses Infection of prosthetic shoulder joint, subsequent encounter T84.59XD; Z96.619 Encounter type: subsequent encounter
== END 2023-11-01 09:54 | disposition home or self-care (01) ==
PROVIDERS: PCP Internal Medicine; Visit Provider Physician Assistant
DX: T84.59XA Infection and inflammatory reaction due to other internal joint prosthesis, initial encounter (principal); Z96.619 Presence of unspecified artificial shoulder joint
CPT/HCPCS: 99203

== ENCOUNTER 2023-11-01 10:11 | Outpatient (REF) | payer MEDICARE, SELFPAY ==
--- NOTE | ~2023-11-01 | XR_ITS ---
EXAMINATION: XR SHOULDER, RIGHT CLINICAL INFORMATION: Pain. COMPARISON: Right shoulder radiographs dated 09/04/2019. TECHNIQUE: AP neutral, scapular Y, and axillary views of the right shoulder. FINDINGS: There is bony demineralization. There is an intact right shoulder total arthroplasty. No hardware failure or loosening seen. There is no periprosthetic fracture. The acromioclavicular and coracoclavicular intervals are normal. There is moderate osteoarthritic change of the acromioclavicular joint. No dislocation is seen. There is a distal acromial undersurface osteophyte. There is no soft tissue calcification or foreign body. XR/XR shoulder RT min 2V IMPRESSION: There is an intact right shoulder arthroplasty. No hardware failure or loosening is seen. There is no periprosthetic fracture.
== END 2023-11-01 10:12 | disposition home or self-care (01) ==
LOC: HO.HOSX 10:11
PROVIDERS: Visit Provider Physician Assistant
DX: M25.511 Pain in right shoulder (principal); T84.59XA Infection and inflammatory reaction due to other internal joint prosthesis, initial encounter; Z96.611 Presence of right artificial shoulder joint
CPT/HCPCS: 73030; 99202

== ENCOUNTER 2024-01-10 10:09 | Outpatient (AMB) | payer MEDICARE, SELFPAY ==
[2024-01-10 10:27] VITALS: BP 118/62; PULSE 65; O2SAT 96; BMI 39.1
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
== END 2024-01-10 11:40 | disposition home or self-care (01) ==
PROVIDERS: PCP Internal Medicine; Visit Provider Internal Medicine
DX: E11.65 Type 2 diabetes mellitus with hyperglycemia (principal); I25.10 Atherosclerotic heart disease of native coronary artery without angina pectoris; I10 Essential (primary) hypertension; C54.1 Malignant neoplasm of endometrium; E03.9 Hypothyroidism, unspecified; D64.9 Anemia, unspecified; T84.59XD Infection and inflammatory reaction due to other internal joint prosthesis, subsequent encounter; Z96.619 Presence of unspecified artificial shoulder joint
CPT/HCPCS: 83036; 99214; G2211

== ENCOUNTER → 2024-03-30 09:32 | Outpatient (REF) | payer MEDICARE, SELFPAY ==
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
== END ==
LOC: HO.CARD 09:32
PROVIDERS: PCP Internal Medicine; Visit Provider Internal Medicine Cardiovascular Disease
DX: I35.0 Nonrheumatic aortic (valve) stenosis (principal)
CPT/HCPCS: 93306; Q9957

== ENCOUNTER → 2024-03-30 09:35 | Outpatient (BNV) | payer MEDICARE, SELFPAY | PROVIDERS: PCP Internal Medicine; Visit Provider Internal Medicine Cardiovascular Disease | DX: I35.0 Nonrheumatic aortic (valve) stenosis (principal); I34.81 Nonrheumatic mitral (valve) annulus calcification | CPT/HCPCS: 93306 ==

== ENCOUNTER 2024-04-14 09:28 | Outpatient (AMB) | payer MEDICARE, SELFPAY ==
--- NOTE | 2024-04-14 09:33 | MHC.PC.OV ---
Vital Signs 04/14/24 09:40 Height 5 ft 5 in Weight 213 lb 8 oz BMI 35.5 BP 130/70 Blood Pressure Location Lt brachial Position Sitting Pulse 75 Pulse Source Pulse Oximeter Pulse Oximetry (%) 97 Oxygen Delivery Method Room Air Intake Visit Reasons: DM Intake Note: Patient is here to follow up on DM. [place] Required: No Winding Lathe Operator: Not Required per policy Accompanied by: Self / Same As Patient Allergies Iodinated Contrast Media [IV CONTRAST] Allergy (Intermediate, Verified 04/14/24 09:34) LOCALIZED ARM SWELLING/REDNESS/ITCHING Doxycycline Hyclate Allergy (Unknown, Uncoded 04/14/24 09:34) rash previous antibiotic Allergy (Unknown, Uncoded 04/14/24 09:34) unkown CT SCAN DYE Adverse Reaction (Unknown, Uncoded 04/14/24 09:34) itching Medication List - Last Reconciled 04/14/24 by Kimi Lopez PA-C amlodipine 5 mg PO DAILY anastrozole 1 mg PO DAILY ascorbic acid (vitamin C) 500 mg PO BID aspirin (Ecotrin Low Strength) 81 mg PO DAILY atorvastatin 80 mg PO DAILY blood sugar diagnostic (FreeStyle Lite Strips) As directed blood-glucose meter (FreeStyle Lite Meter kit) test daily celecoxib 200 mg PO BID 30 days cholecalciferol (vitamin D3) 25 mcg PO DAILY 90 days [Diabetic shoe inserts As directed] empagliflozin (Jardiance) 10 mg PO DAILY ferrous sulfate 324 mg PO BID lancets As directed levothyroxine 175 mcg PO QAM 90 days lisinopril 40 mg PO DAILY megestrol 80 mg PO BID metformin 1,000 mg PO BID metoprolol tartrate 25 mg PO BID Tobacco use date assessed: 04/14/24 Fall risk assessment: No Falls in past year Last assessed Fall Risk: 04/14/24 Dental Screening Dental Screen Date: 01/10/24 HPI DM HPI Details 78 year old obese female with history of lung cancer, diabetes mellitus, coronary artery disease, hypertension, hypothyroid, endometrial adenocarcinoma, and osteoporosis last seen by Dr. Louis coming in for follow up. In review of the notes, patient recently completed echo 03/30/2024 with normal ejection fraction 65-70% and mild aortic stenosis. Patient has been working on healthy diet and regular exercise as tolerated. She does have a noted weight loss from her last appointment and mentioned she has more energy since losing the weight. She has been decreasing her carb intake and working on her sugar intake. She has been taking the Jardiance but does mentioned in his a 40 dollar co-pay monthly for the prescription. [facility] Medical History Cholelithiasis Foot osteomyelitis, right Lung cancer Knee osteoarthritis Vitamin D deficiency Obesity (BMI 30-39.9) Endometrial adenocarcinoma Aortic stenosis HTN (hypertension) Diastolic dysfunction CAD (coronary artery disease) Methicillin susceptible Staphylococcus aureus infection Prosthetic shoulder infection Type 2 diabetes mellitus with hyperglycemia Surgical History Status post right foot surgery S/P FABBY-BSO Right humeral fracture History of cardiac catheterization (~2019) Family History Father No problems noted. Mother No problems noted. Social History Housing: House Alcohol intake: current Alcohol intake frequency: 3 or more drinks per day Patient Tobacco Use Status: Never used Tobacco e-Cigarette/Vaping Use: Never Used Second Hand Smoke Exposure: No service: No Current occupational status: retired Cognitive needs: No Hearing needs: No Vision needs: Yes Questionnaire Thrive Questionnaire Date Thrive assessed: 01/10/24 RIGOBERTO-7 AMB Questionnaire RIGOBERTO-7 Date RIGOBERTO - 7 assessed: 01/10/24 Source: Developed by Drs. Jun Turcios, Madie Amaro, Shola Ramos and colleagues, with an educational sophia from [employer]. Review of Systems Const Denies body aches, Denies chills, Denies fatigue, Denies fever(s) and Reports weight loss Eyes Reports no additional complaints ENT Reports no additional complaints Card Denies chest pain, Denies leg edema and Denies dyspnea Resp Denies dyspnea GI Reports no additional complaints Denies difficulty voiding, Denies dysuria and Denies urinary urgency Musc Reports no additional complaints Skin/Breast Reports system reviewed and no additional complaints, except as documented Endo Denies fatigue Physical exam (Primary Care) Vital Signs: Last Vital Signs Pulse 75 04/14/24 09:40 BP 130/70 04/14/24 09:40 Pulse Ox 97 04/14/24 09:40 Oxygen Delivery Method Room Air 04/14/24 09:40 BMI result Body Mass Index 35.5 Tobacco/Smoking Status: Tobacco use Status Tobacco use date assessed 04/14/24 04/14/24 09:35 Patient Tobacco Use Status Never used Tobacco 04/14/24 09:35 e-Cigarette/Vaping Use Never Used 04/14/24 09:35 Thrive Assessment: Date of Thrive Assessment Date Thrive assessed 01/10/24 04/14/24 09:35 Const General: cooperative, healthy appearing, comfortable and no acute distress Orientation/consciousness: patient oriented x3 HENMT Head: Yes normocephalic Ears: hearing grossly normal bilaterally General nose exam: Normal external nose present Eyes General: appearance normal, both eyes and all related structures Conjunctivae: conjunctivae normal Neck Neck: Yes full ROM and Yes no lymphadenopathy Resp Effort & Inspection: normal respiratory effort Auscultation: clear to auscultation bilaterally, no crackles, no rales, no rhonchi and no wheezes Cardio Rate: regular rate Rhythm: regular rhythm Skin General skin exam: no rashes or lesions noted Neuro General: patient oriented x3 Gait exam (Neuro): Normal gait present Extrem General: Yes normal to inspection, Yes full ROM and No edema Psych Affect: normal affect Attitude: cooperative Insight: Good insight present (Psych) Judgement: Good judgement present (Psych) Results AMB Hemoglobin A1c AMB Hemoglobin A1c 9.1 % Last Edit by ROBERTA Andino on 04/14/24 09:59 Assessment and Plan Assessment & Plan (1) HTN (hypertension): Code(s): I10 - Essential (primary) hypertension Qualifiers: Hypertension type: essential hypertension Qualified Code(s): I10 - Essential (primary) hypertension Plan: Blood pressure at goal today continue on metoprolol, lisinopril, and amlodipine. Avoid salt intake. (2) Type 2 diabetes mellitus with hyperglycemia: Code(s): E11.65 - Type 2 diabetes mellitus with hyperglycemia Qualifiers: Diabetes mellitus intermodal customer service insulin use: without correction use Qualified Code(s): E11.65 - Type 2 diabetes mellitus with hyperglycemia Plan: Patient has been working on better diet and regular exercise. She does have a noted weight loss however her A1c remains at 9.1%. She has been taking the Jardiance as prescribed but mentions that is too expensive and would like to switch to another agent. We will trial Farxiga and increase the dose as tolerated. Advised patient to reach out if this prescription is too expensive or is not covered by insurance. She does often skip meals is not a good candidate for sulfonylurea. Decrease the amount of carbohydrates such as pasta, bread, rice, and potatoes and limit the amount of sweets. Although fruits are generally healthy they should be eaten in moderation as they are still high in sugar. Hemoglobin A1c goal of less than 7%. Plan This note was constructed using voice recognition software. While every effort has been made to ensure accuracy and cnc specialist, still areas may have been included sometimes these areas may affect the content or meeting of the given symptoms. Total time spent caring for the patient today was 30 minutes. This includes time spent before the visit reviewing the chart, time spent during the visit, and time spent after the visit and documentation. Orders: Orders AMB Hemoglobin A1c Today E11.65 - Type 2 diabetes mellitus with hyperglycemia Medications: New dapagliflozin propanediol (Farxiga) 5 mg PO DAILY 30 tabs 3RF Discontinued empagliflozin (Jardiance) Discontinued Reason: Patient no longer taking 10 mg PO DAILY 30 tabs 3RF E11.65 - Type 2 diabetes mellitus with hyperglycemia Coding Level of Care Code Est Pt Level 4 (06292) Diagnoses Essential hypertension I10 Hypertension type: essential hypertension Type 2 diabetes mellitus with hyperglycemia, without long-term current use of insulin E11.65 Diabetes mellitus intermodal customer service insulin use: without intermodal customer service use
[2024-04-14 09:40] VITALS: BP 130/70; PULSE 75; O2SAT 97; BMI 35.5
== END 2024-04-14 10:19 | disposition home or self-care (01) ==
PROVIDERS: PCP Internal Medicine
DX: I10 Essential (primary) hypertension (principal); E11.65 Type 2 diabetes mellitus with hyperglycemia
CPT/HCPCS: 83036; 99214

== ENCOUNTER 2024-04-29 09:32 | Outpatient (AMB) | payer MEDICARE, SELFPAY ==
[2024-04-29 09:36] VITALS: BP 130/68; PULSE 74; BMI 37.8
--- NOTE | 2024-04-29 09:36 | MHC.OFFVIS ---
Vital Signs 04/29/24 09:36 Height 5 ft 5 in Weight 227 lb 1.218 oz BMI 37.8 BP 130/68 Blood Pressure Location Lt brachial Position Sitting Pulse 74 Pulse Source Monitor Intake Visit Reasons: 1 yr follow up Allergies Iodinated Contrast Media [IV CONTRAST] Allergy (Intermediate, Verified 04/14/24 09:34) LOCALIZED ARM SWELLING/REDNESS/ITCHING Doxycycline Hyclate Allergy (Unknown, Uncoded 04/14/24 09:34) rash previous antibiotic Allergy (Unknown, Uncoded 04/14/24 09:34) unkown CT SCAN DYE Adverse Reaction (Unknown, Uncoded 04/14/24 09:34) itching Medication List - Last Reconciled 04/29/24 by Ramirez Sorenson MD amlodipine 5 mg PO DAILY anastrozole 1 mg PO DAILY ascorbic acid (vitamin C) 500 mg PO BID aspirin (Ecotrin Low Strength) 81 mg PO DAILY atorvastatin 80 mg PO DAILY blood sugar diagnostic (FreeStyle Lite Strips) As directed blood-glucose meter (FreeStyle Lite Meter kit) test daily celecoxib 200 mg PO BID 30 days cholecalciferol (vitamin D3) 25 mcg PO DAILY 90 days dapagliflozin propanediol (Farxiga) 5 mg PO DAILY [Diabetic shoe inserts As directed] ferrous sulfate 324 mg PO BID lancets As directed levothyroxine 175 mcg PO QAM 90 days lisinopril 40 mg PO DAILY megestrol 80 mg PO BID metformin 1,000 mg PO BID metoprolol tartrate 25 mg PO BID HPI Comments Details: Rasheeda comes for follow-up. She has been doing well from cardiac perspective. Denies any cardiac symptoms exertional chest pain shortness of breath. Walks with the help of a walker. No heart failure symptoms. No prolonged palpitation irregular heartbeat. Most recent EKG shows mild aortic stenosis with preserved LV systolic function. No lightheadedness, syncope. Takes all her medications. [facility] Medical History Cholelithiasis Foot osteomyelitis, right Lung cancer Knee osteoarthritis Vitamin D deficiency Obesity (BMI 30-39.9) Endometrial adenocarcinoma Aortic stenosis HTN (hypertension) Diastolic dysfunction CAD (coronary artery disease) Methicillin susceptible Staphylococcus aureus infection Prosthetic shoulder infection Type 2 diabetes mellitus with hyperglycemia Surgical History Status post right foot surgery S/P FABBY-BSO Right humeral fracture History of cardiac catheterization (~2019) Family History Father No problems noted. Mother No problems noted. Social History Housing: House Alcohol intake: current Alcohol intake frequency: 3 or more drinks per day Patient Tobacco Use Status: Never used Tobacco e-Cigarette/Vaping Use: Never Used Second Hand Smoke Exposure: No service: No Current occupational status: retired Cognitive needs: No Hearing needs: No Vision needs: Yes Review of Systems Const Denies weakness ENT Denies dizziness Card Denies chest pain, Denies chest pain with activity, Denies syncope, Denies rapid heart rate, Denies pedal edema, Denies edema, Denies leg edema, Denies lightheadedness, Denies palpitations, Denies dyspnea, Denies dyspnea on exertion and Denies orthopnea Resp Denies cough, Denies dyspnea and Denies dyspnea on exertion GI Denies hematochezia and Denies change in stool character Musc Denies abnormal gait, Denies muscle cramps, Denies muscle weakness, Denies numbness, Denies radiating pain into limb and Denies tingling Neuro Denies abnormal gait, Denies dizziness, Denies syncope, Denies numbness, Denies tingling and Denies weakness Endo Denies palpitations Physical Exam Vital Signs: Last Vital Signs Pulse 74 04/29/24 09:36 BP 130/68 04/29/24 09:36 BMI result Body Mass Index 37.8 Const General: cooperative, comfortable, no acute distress, alert, awake and well groomed Nutritional Appearance: obese Orientation/consciousness: patient oriented x3 Limitations: ambulation with walker Neck Neck: Yes trachea midline, Yes supple and Yes no JVD Resp Effort & Inspection: normal respiratory effort Auscultation: clear to auscultation bilaterally Cardio Jugular venous distension: no JVD Palpation: normal PMI Rate: regular rate Rhythm: regular rhythm Heart sounds: S1 normal heart sound present, S2 normal heart sound present and Murmur heart sound present systolic early and decrescendo Skin General skin exam: no rashes or lesions noted Neuro General: patient oriented x3 and no focal motor deficits Extrem General: Yes no clubbing, cyanosis or edema Psych Appearance: grossly normal Assessment & Plan Assessment & Plan (1) Aortic stenosis: Comment: March 2022. Normal LV systolic function with mild LVH with impaired relaxation filling pattern 2. Mild aortic stenosis 1.79 3. Normal RV systolic pressure 4. No gross pericardial effusion Code(s): I35.0 - Nonrheumatic aortic (valve) stenosis Category: Medical Qualifiers: Cardiac valve disease etiology: nonrheumatic Qualified Code(s): I35.0 - Nonrheumatic aortic (valve) stenosis Plan: Aortic stenosis which remains mild. No symptoms related to it. No surgical interventions required. Continue low-dose aspirin therapy in aggressive risk factor modification. Continue annual follow-up with echocardiogram. Management was discussed with her in details. (2) CAD (coronary artery disease): Comment: Echo on February 2019 EF 55-60%, nuclear stress test March 2019 old intensity septal and apical ischemia, ischemic dilatation present Code(s): I25.10 - Atherosclerotic heart disease of [place] coronary artery without angina pectoris Category: Medical Qualifiers: Coronary Disease-Associated Artery/Lesion type: [place] artery [place] vs. transplanted heart: [place] heart Associated angina: without angina Qualified Code(s): I25.10 - Atherosclerotic heart disease of [place] coronary artery without angina pectoris Plan: CAD with branch vessel disease without any significant and discomfort on current medical therapy. Continue metoprolol and amlodipine therapy. Continue low-dose aspirin therapy for life. Continue high-intensity statin therapy with target goal LDL closer to 60 mg/dL. Advised to call me with any new symptoms. Will follow up in the clinic in 1 year's time, sooner p.r.n.. Thank you for allowing me to partake in his care Orders: Orders CA echo transthoracic complete 1 Year I35.0 - Nonrheumatic aortic (valve) stenosis Coding Level of Care Code Est Pt Level 4 (16707) Diagnoses Nonrheumatic aortic valve stenosis I35.0 Cardiac valve disease etiology: nonrheumatic Coronary artery disease involving [place] coronary artery of [place] heart without angina pectoris I25.10 Coronary Disease-Associated Artery/Lesion type: [place] artery [place] vs. transplanted heart: [place] heart Associated angina: without angina
== END 2024-04-29 10:21 | disposition home or self-care (01) ==
PROVIDERS: PCP Internal Medicine; Visit Provider Internal Medicine Cardiovascular Disease
DX: I35.0 Nonrheumatic aortic (valve) stenosis (principal); I25.10 Atherosclerotic heart disease of native coronary artery without angina pectoris
CPT/HCPCS: 99214

== ENCOUNTER → 2024-04-29 09:32 | Outpatient (BNVA) | payer MEDICARE, SELFPAY | PROVIDERS: PCP Internal Medicine; Visit Provider Internal Medicine Cardiovascular Disease | DX: I35.0 Nonrheumatic aortic (valve) stenosis (principal); I25.10 Atherosclerotic heart disease of native coronary artery without angina pectoris; I10 Essential (primary) hypertension | CPT/HCPCS: 99212 ==

== ENCOUNTER 2024-07-07 09:24 | Outpatient (AMB) | payer MEDICARE, SELFPAY ==
[2024-07-07 09:26] VITALS: BP 112/68; PULSE 82; O2SAT 98; BMI 39.6
--- NOTE | 2024-07-07 09:26 | MHC.PC.OV ---
Vital Signs 07/07/24 09:26 Height 5 ft 5 in Weight 238 lb 1.588 oz BMI 39.6 BP 112/68 Blood Pressure Location Lt brachial Position Sitting Pulse 82 Pulse Source Pulse Oximeter Pulse Oximetry (%) 98 Oxygen Delivery Method Room Air Intake Visit Reasons: f/u DM early Jul Intake Note: Patient is here to follow up Allergies Iodinated Contrast Media [IV CONTRAST] Allergy (Intermediate, Verified 07/07/24 09:27) LOCALIZED ARM SWELLING/REDNESS/ITCHING Doxycycline Hyclate Allergy (Unknown, Uncoded 07/07/24 09:27) rash previous antibiotic Allergy (Unknown, Uncoded 07/07/24 09:27) unkown CT SCAN DYE Adverse Reaction (Unknown, Uncoded 07/07/24 09:27) itching Medication List - Last Reconciled 07/07/24 by Kimi Lopez PA-C amlodipine 5 mg PO DAILY anastrozole 1 mg PO DAILY ascorbic acid (vitamin C) 500 mg PO BID aspirin (Ecotrin Low Strength) 81 mg PO DAILY atorvastatin 80 mg PO DAILY blood sugar diagnostic (FreeStyle Lite Strips) As directed blood-glucose meter (FreeStyle Lite Meter kit) test daily celecoxib 200 mg PO BID 30 days cholecalciferol (vitamin D3) 25 mcg PO DAILY 90 days dapagliflozin propanediol (Farxiga) 5 mg PO DAILY [Diabetic shoe inserts As directed] ferrous sulfate 324 mg PO BID lancets As directed levothyroxine 175 mcg PO QAM 90 days lisinopril 40 mg PO DAILY megestrol 80 mg PO BID metformin 1,000 mg PO BID metoprolol tartrate 25 mg PO BID Tobacco use date assessed: 04/14/24 Fall risk assessment: No Falls in past year Last assessed Fall Risk: 07/07/24 Dental Screening Dental Screen Date: 01/10/24 HPI f/u DM early Jul HPI Details 79-year-old female with past medical history of lung cancer, diabetes mellitus, coronary artery disease, hypertension, hypothyroid, endometrial adenocarcinoma and osteoporosis last seen April 2024 coming in for follow up. In review of the notes patient was seen by [facility] gynecology 05/12/2024 plan for imaging to assess response to therapy for endometrial cancer and PET scan. Patient was seen by [facility] Cardiology 04/29/2024 advised to continue on low-dose aspirin and continue with annual echocardiogram, Given target goal LDL closer to 60. Patient states she has been doing well in the Farxiga 5 mg. She did recently come back from vacation from visiting family and states she is feeling well but did eat a lot of carbs and sweets while visiting family. She has no acute concerns today [facility] Medical History Cholelithiasis Foot osteomyelitis, right Lung cancer Knee osteoarthritis Vitamin D deficiency Obesity (BMI 30-39.9) Endometrial adenocarcinoma Aortic stenosis HTN (hypertension) Diastolic dysfunction CAD (coronary artery disease) Methicillin susceptible Staphylococcus aureus infection Prosthetic shoulder infection Type 2 diabetes mellitus with hyperglycemia Surgical History Status post right foot surgery S/P FABBY-BSO Right humeral fracture History of cardiac catheterization (~2018) Family History Father No problems noted. Mother No problems noted. Social History Housing: House Alcohol intake: current Alcohol intake frequency: 3 or more drinks per day Patient Tobacco Use Status: Never used Tobacco e-Cigarette/Vaping Use: Never Used Second Hand Smoke Exposure: No service: No Current occupational status: retired Cognitive needs: No Hearing needs: No Vision needs: Yes Questionnaire Thrive Questionnaire Date Thrive assessed: 01/10/24 AUDIT C Alcohol Use Questionnaire (AUDIT-C) 1. How often do you have a drink containing alcohol?: Monthly or less 2. How many drinks containing alcohol do you have on a typical day when you are drinking?: 1 or 2 3. How often do you have six or more drinks on one occasion?: Never Total Score: 1 RIGOBERTO-7 AMB Questionnaire RIGOBERTO-7 Date RIGOBERTO - 7 assessed: 01/10/24 Source: Developed by Drs. Jun Turcios, Madie Amaro, Shola Ramos and colleagues, with an educational sophia from [employer]. Review of Systems Const Denies body aches, Denies chills, Denies fever(s), Denies headache(s) and Denies poor appetite Eyes Reports no additional complaints ENT Denies dizziness and Denies headache(s) Card Denies chest pain, Denies syncope, Denies edema, Denies irregular heart rhythm, Denies lightheadedness and Denies dyspnea Resp Denies cough and Denies dyspnea GI Denies abdominal pain, Denies constipation, Denies diarrhea, Denies nausea and Denies vomiting Reports no additional complaints Musc Reports no additional complaints and Denies abnormal gait Skin/Breast Reports system reviewed and no additional complaints, except as documented Neuro Denies abnormal gait, Denies dizziness, Denies syncope and Denies headache(s) Psych Reports no additional complaints Physical exam (Primary Care) Vital Signs: Last Vital Signs Pulse 82 07/07/24 09:26 BP 112/68 07/07/24 09:26 Pulse Ox 98 07/07/24 09:26 Oxygen Delivery Method Room Air 07/07/24 09:26 BMI result Body Mass Index 39.6 Tobacco/Smoking Status: Tobacco use Status Tobacco use date assessed 04/14/24 07/07/24 09:33 Patient Tobacco Use Status Never used Tobacco 07/07/24 09:33 e-Cigarette/Vaping Use Never Used 07/07/24 09:33 Thrive Assessment: Date of Thrive Assessment Date Thrive assessed 01/10/24 07/07/24 09:33 Const General: cooperative, healthy appearing, comfortable and no acute distress Orientation/consciousness: patient oriented x3 HENMT Head: Yes normocephalic Ears: hearing grossly normal bilaterally General nose exam: Normal external nose present Eyes General: appearance normal, both eyes and all related structures Conjunctivae: conjunctivae normal Neck Neck: Yes full ROM and Yes no lymphadenopathy Resp Effort & Inspection: normal respiratory effort Auscultation: clear to auscultation bilaterally, no crackles, no rales, no rhonchi and no wheezes Cardio Rate: regular rate Rhythm: regular rhythm Skin General skin exam: no rashes or lesions noted Neuro General: patient oriented x3 Gait exam (Neuro): Normal gait present Extrem General: Yes normal to inspection, Yes full ROM and No edema Psych Affect: normal affect Attitude: cooperative Insight: Good insight present (Psych) Judgement: Good judgement present (Psych) Results AMB Hemoglobin A1c AMB Hemoglobin A1c 8.1 % Last Edit by ROBERTA Amyaa on 07/07/24 09:57 Coding Level of Care Code Est Pt Level 4 (38881) Diagnoses Endometrial adenocarcinoma C54.1 Obesity (BMI 30-39.9) E66.9 Essential hypertension I10 Hypertension type: essential hypertension Coronary artery disease involving [place] coronary artery of [place] heart without angina pectoris I25.10 Coronary Disease-Associated Artery/Lesion type: [place] artery [place]eller vs. transplanted heart: [place] heart Associated angina: without angina Type 2 diabetes mellitus with hyperglycemia, without long-term current use of insulin E11.65 Diabetes mellitus manager terminal insulin use: without snf use Nonrheumatic aortic valve stenosis I35.0 Cardiac valve disease etiology: nonrheumatic Assessment & Plan Assessment & Plan (1) Endometrial adenocarcinoma: Comment: 2004, pulmonary nodule 2020 positive Code(s): C54.1 - Malignant neoplasm of endometrium Category: Medical Plan: Currently following with Gynecology we will arrange for repeat imaging to ensure good response to therapy (2) Obesity (BMI 30-39.9): Code(s): E66.9 - Obesity, unspecified Category: Medical Plan: Healthy diet and regular exercise is encouraged. (3) HTN (hypertension): Code(s): I10 - Essential (primary) hypertension Category: Medical Qualifiers: Hypertension type: essential hypertension Qualified Code(s): I10 - Essential (primary) hypertension Plan: Continue on current blood pressure medication. Avoid salt intake and encourage healthy diet and regular exercise. (4) CAD (coronary artery disease): Comment: Echo on February 2019 EF 55-60%, nuclear stress test March 2019 old intensity septal and apical ischemia, ischemic dilatation present Code(s): I25.10 - Atherosclerotic heart disease of [place] coronary artery without angina pectoris Category: Medical Qualifiers: Coronary Disease-Associated Artery/Lesion type: [place] artery [place] vs. transplanted heart: [place] heart Associated angina: without angina Qualified Code(s): I25.10 - Atherosclerotic heart disease of [place] coronary artery without angina pectoris Plan: Healthy diet and regular exercise is encouraged. Per Cardiology LDL goal close to 60 mg continue on atorvastatin and aspirin. Advised good control of blood pressure, cholesterol and blood sugars. (5) Type 2 diabetes mellitus with hyperglycemia: Code(s): E11.65 - Type 2 diabetes mellitus with hyperglycemia Category: Medical Qualifiers: Diabetes mellitus manager terminal insulin use: without snf use Qualified Code(s): E11.65 - Type 2 diabetes mellitus with hyperglycemia Plan: Decrease the amount of carbohydrates such as pasta, bread, rice, and potatoes and limit the amount of sweets. Although fruits are generally healthy they should be eaten in moderation as they are still high in sugar. Hemoglobin A1c goal of less than 7%. Presently on Farxiga and metformin. Patient A1c was 8.1% today would has improved since last A1c at 9.1%. We will increase Farxiga to 10 mg and advised patient to reach out if this doses not covered by insurance or co-pay is too high. (6) Aortic stenosis: Comment: March 2022. Normal LV systolic function with mild LVH with impaired relaxation filling pattern 2. Mild aortic stenosis 1.79 3. Normal RV systolic pressure 4. No gross pericardial effusion Code(s): I35.0 - Nonrheumatic aortic (valve) stenosis Category: Medical Qualifiers: Cardiac valve disease etiology: nonrheumatic Qualified Code(s): I35.0 - Nonrheumatic aortic (valve) stenosis Plan: Patient continues to follow with cardiology advised to undergo annual echocardiogram with subsequent follow up. Plan This note was constructed using voice recognition software. While every effort has been made to ensure accuracy and channel cementer outsole machine, still areas may have been included sometimes these areas may affect the content or meeting of the given symptoms. Total time spent caring for the patient today was 20 minutes. This includes time spent before the visit reviewing the chart, time spent during the visit, and time spent after the visit and documentation. Orders: Orders AMB Hemoglobin A1c Today E11.65 - Type 2 diabetes mellitus with hyperglycemia Comprehensive Met. Panel Today E11.65 - Type 2 diabetes mellitus with hyperglycemia, E87.5 - Hyperkalemia Medications: New dapagliflozin propanediol (Farxiga) 10 mg PO DAILY 30 tabs 3RF Discontinued dapagliflozin propanediol (Farxiga) Discontinued Reason: Patient no longer taking 5 mg PO DAILY 30 tabs 3RF
== END 2024-07-07 10:06 | disposition home or self-care (01) ==
PROVIDERS: PCP Internal Medicine
DX: E11.65 Type 2 diabetes mellitus with hyperglycemia (principal); C54.1 Malignant neoplasm of endometrium; Z68.39 Body mass index [BMI] 39.0-39.9, adult; E66.9 Obesity, unspecified; I10 Essential (primary) hypertension; I25.10 Atherosclerotic heart disease of native coronary artery without angina pectoris; I35.0 Nonrheumatic aortic (valve) stenosis

== ENCOUNTER → 2024-07-07 09:24 | Outpatient (BNVA) | payer MEDICARE, SELFPAY | PROVIDERS: PCP Internal Medicine | DX: C54.1 Malignant neoplasm of endometrium (principal); E66.9 Obesity, unspecified; I10 Essential (primary) hypertension; I25.10 Atherosclerotic heart disease of native coronary artery without angina pectoris; E11.65 Type 2 diabetes mellitus with hyperglycemia; I35.0 Nonrheumatic aortic (valve) stenosis | CPT/HCPCS: 83036; 99212 ==

== ENCOUNTER → 2024-09-22 09:45 | Outpatient (BNV) | payer MEDICARE, SELFPAY | PROVIDERS: PCP Internal Medicine; Visit Provider Internal Medicine | DX: Z12.31 Encounter for screening mammogram for malignant neoplasm of breast (principal) | CPT/HCPCS: 77063; 77067 ==

== ENCOUNTER 2024-09-22 10:04 | Outpatient (REF) | payer MEDICARE, SELFPAY | END 2024-09-22 10:05 | disposition home or self-care (01) | LOC: HO.MAMMO 10:04 | PROVIDERS: PCP Internal Medicine; Visit Provider Internal Medicine | DX: Z12.31 Encounter for screening mammogram for malignant neoplasm of breast (principal) | CPT/HCPCS: 77063; 77067 ==

== ENCOUNTER 2024-11-23 08:22 | Outpatient (AMB) | payer MEDICARE, SELFPAY ==
--- NOTE | 2024-11-23 08:34 | A.OFFPC_ITS ---
Vital Signs 11/23/24 08:36 Height 5 ft 5 in Weight 236 lb 8 oz BMI 39.4 BP 120/72 Blood Pressure Location Lt brachial Position Sitting Pulse 69 Pulse Source Pulse Oximeter Temp 97.1 F Temp Source Temporal Artery Scan Pulse Oximetry (%) 96 Oxygen Delivery Method Room Air Intake Visit Reasons: F/U DM Intake Note: Patient is here to follow up on DM. 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: Not Required per policy Accompanied by: Self / Same As Patient Allergies Iodinated Contrast Media [IV CONTRAST] Allergy (Intermediate, Verified 11/23/24 08:40) LOCALIZED ARM SWELLING/REDNESS/ITCHING Doxycycline Hyclate Allergy (Unknown, Uncoded 11/23/24 08:40) rash previous antibiotic Allergy (Unknown, Uncoded 11/23/24 08:40) unkown CT SCAN DYE Adverse Reaction (Unknown, Uncoded 11/23/24 08:40) itching Medication List - Last Reviewed 11/23/24 by ROBERTA Andino amlodipine 5 mg PO DAILY anastrozole 1 mg PO DAILY ascorbic acid (vitamin C) 500 mg PO BID aspirin (Ecotrin Low Strength) 81 mg PO DAILY atorvastatin 80 mg PO DAILY blood sugar diagnostic (FreeStyle Lite Strips) As directed blood-glucose meter (FreeStyle Lite Meter kit) test daily celecoxib 200 mg PO BID 30 days cholecalciferol (vitamin D3) 25 mcg PO DAILY 90 days dapagliflozin propanediol (Farxiga) 10 mg PO DAILY [Diabetic shoe inserts As directed] ferrous sulfate 324 mg PO BID lancets As directed levothyroxine 175 mcg PO QAM 90 days lisinopril 40 mg PO DAILY megestrol 80 mg PO BID metformin 1,000 mg PO BID metoprolol tartrate 25 mg PO BID Tobacco use date assessed: 11/23/24 Fall risk assessment: No Falls in past year Last assessed Fall Risk: 11/23/24 Dental Screening Dental Screen Date: 11/23/24 Did you have a dental visit in the last 12 months?: No Did you have a dental problem in the last 6 months where you did not have access to dental care?: No Was dental information given to patient?: Patient has dentist HPI F/U DM HPI Details 79-year-old female with past medical his tory of lung cancer, diabetes mellitus, coronary artery disease, hypertension, hypothyroid, endometrial adenocarcinoma and osteoporosis last seen 07/2024 coming in for follow up. Presenting with medication management of type 2 diabetes mellitus. She reports occasional nocturnal shortness of breath and increased urination since the dosage of Farxiga was increased to 10 mg. There is an increase in A1c levels from 8.1 to 8.4, indicating poor glycemic control. Her diet includes crackers as a snack, despite her efforts to avoid sweets, which might contribute to poor diabetes control. FOR[facility]LY [facility] Medical History Cholelithiasis Foot osteomyelitis, right Lung cancer Knee osteoarthritis Vitamin D deficiency Obesity (BMI 30-39.9) Endometrial adenocarcinoma Aortic stenosis HTN (hypertension) Diastolic dysfunction CAD (coronary artery disease) Methicillin susceptible Staphylococcus aureus infection Prosthetic shoulder infection Type 2 diabetes mellitus with hyperglycemia Surgical History Status post right foot surgery S/P FABBY-BSO Right humeral fracture History of cardiac catheterization (~2018) Family History Father No problems noted. Mother No problems noted. Social History Housing: House Alcohol intake: current Alcohol intake frequency: holidays/special occasions only Patient Tobacco Use Status: Never used Tobacco e-Cigarette/Vaping Use: Never Used Second Hand Smoke Exposure: No service: No Current occupational status: retired Cognitive needs: Yes ([employer]) Hearing needs: No Vision needs: Yes Questionnaire PHQ-9 Over the last 2 weeks, how often have you been bothered by any of the following problems? 1. Little interest or pleasure in doing things: not at all 2. Feeling down, depressed, or hopeless: not at all 3. Trouble falling or staying asleep, or sleeping too much: not at all 4. Feeling tired or having little energy: not at all 5. Poor appetite or overeating: not at all 6. Feeling bad about yourself - or that you are a failure or have let yourself or your family down: not at all 7. Trouble concentrating on things, such as reading the newspaper or watching television: not at all 8. Moving or speaking so slowly that other people could have noticed. Or the opposite - being so fidgety or restless that you have been moving around a lot more than usual: not at all 9. Thoughts that you would be better off or of hurting yourself in some way: not at all Total score: 0 Depression Screening Interpretation: Negative Depression Screening Done: Yes Source: Developed by Drs. Jun Turcios, Madie Amaro, Shola Ramos and colleagues, with an educational sophia from [employer]. Thrive Questionnaire Date Thrive assessed: 11/23/24 I am a: Patient What is your living situation today?: I have a steady place to live Within the past 12 months, did the food you bought not last and you didn't have the money to get more?: Never true Within the past 12 months, did you worry whether your food would run out before you got money to buy more?: Never true Do you have trouble paying for medicines?: No Do you have trouble getting transportation to medical appointments?: No Do you have trouble paying your heating and electricity bill?: No Do you have trouble taking care of your child, family member or friend?: No Do you have trouble with day-to-day activities such as bathing, preparing meals, shopping, managing finances, etc.?: No Are you currently unemployed and looking for a job?: No Are you interested in more education?: No Please select the resources that you would like help with: None Currently or been in a relationship where the following occur: No concerns reported THRIVE Score: 0 AUDIT C Alcohol Use Questionnaire (AUDIT-C) 1. How often do you have a drink containing alcohol?: Monthly or less 2. How many drinks containing alcohol do you have on a typical day when you are drinking?: 1 or 2 Total Score: 1 RIGOBERTO-7 AMB Questionnaire RIGOBERTO-7 Date RIGOBERTO - 7 assessed: 11/23/24 Feeling nervous, anxious, or on edge: 0 = Not at all Not being able to stop or control worryin = Not at all Worrying too much about different things: 0 = Not at all Trouble relaxin = Not at all Being so restless that it is hard to sit still: 0 = Not at all Becoming easily annoyed or irritable: 0 = Not at all Feeling afraid as if something awful might happen: 0 = Not at all Total RIGOBERTO-7 score (0-4 normal; 5-9 mild; 10-14 moderate; 15-21 severe): 0 Source: Developed by Drs. Jun Turcios, Madie Amaro, Shola Ramos and colleagues, with an educational sophia from [employer]. Review of Systems Const Denies body aches, Denies chills, Denies fever(s), Denies headache(s) and Denies poor appetite Eyes Reports no additional complaints ENT Denies dizziness and Denies headache(s) Card Denies chest pain, Denies syncope, Denies lightheadedness, Denies dyspnea and Reports dyspnea on exertion (Occasional since starting Farxiga 10) Resp Denies cough, Denies dyspnea and Reports dyspnea on exertion (Occasional since starting Farxiga 10) GI Denies nausea and Denies vomiting Reports no additional complaints Musc Reports no additional complaints and Denies abnormal gait Skin/Breast Reports system reviewed and no additional complaints, except as documented Neuro Denies abnormal gait, Denies dizziness, Denies syncope and Denies headache(s) Psych Reports no additional complaints Physical exam (Primary Care) Vital Signs: Last Vital Signs Temp 97.1 F 11/23/24 08:36 Pulse 69 11/23/24 08:36 BP 120/72 11/23/24 08:36 Pulse Ox 96 11/23/24 08:36 Oxygen Delivery Method Room Air 11/23/24 08:36 BMI result Body Mass Index 39.4 Tobacco/Smoking Status: Tobacco use Status Tobacco use date assessed 11/23/24 11/23/24 08:40 Patient Tobacco Use Status Never used Tobacco 11/23/24 08:45 e-Cigarette/Vaping Use Never Used 11/23/24 08:45 PHQ-9: PHQ-9 Score PHQ-9: Total score 0 11/23/24 08:40 Depression Screening Interpretation: Negative Thrive Assessment: Date of Thrive Assessment Date Thrive assessed 11/23/24 11/23/24 08:40 Currently or been in a relationship where the following occur: No concerns reported Const General: cooperative, healthy appearing, comfortable and no acute distress Orientation/consciousness: patient oriented x3 HENMT Head: Yes normocephalic Ears: hearing grossly normal bilaterally General nose exam: Normal external nose present Eyes General: appearance normal, both eyes and all related structures Conjunctivae: conjunctivae normal Neck Neck: Yes full ROM and Yes no lymphadenopathy Resp Effort & Inspection: normal respiratory effort Auscultation: clear to auscultation bilaterally, no crackles, no rales, no rhonchi and no wheezes Cardio Rate: regular rate Rhythm: regular rhythm Skin General skin exam: no rashes or lesions noted Neuro General: patient oriented x3 Gait exam (Neuro): Normal gait present Extrem General: Yes normal to inspection, Yes full ROM and No edema Psych Affect: normal affect Attitude: cooperative Insight: Good insight present (Psych) Judgement: Good judgement present (Psych) Results AMB Hemoglobin A1c AMB Hemoglobin A1c 8.4 % Last Edit by ROBERTA Andino on 11/23/24 08:50 Coding Level of Care Code Est Pt Level 4 (17102) Diagnoses Endometrial adenocarcinoma C54.1 Obesity (BMI 30-39.9) E66.9 Essential hypertension I10 Hypertension type: essential hypertension Coronary artery disease involving wainwright coronary artery of wainwright heart without angina pectoris I25.10 Coronary Disease-Associated Artery/Lesion type: wainwright artery [place] vs. transplanted heart: wainwright heart Associated angina: without angina Type 2 diabetes mellitus with hyperglycemia, without long-term current use of insulin E11.65 Diabetes mellitus extermination supervisor insulin use: without penitentiary use Assessment & Plan Assessment & Plan (1) Endometrial adenocarcinoma: Comment: 2004, pulmonary nodule 2020 positive Code(s): C54.1 - Malignant neoplasm of endometrium Category: Medical Plan: Currently following with Gynecology we will arrange for repeat imaging to ensure good response to therapy (2) Obesity (BMI 30-39.9): Code(s): E66.9 - Obesity, unspecified Category: Medical Plan: Healthy diet and regular exercise is encouraged. (3) HTN (hypertension): Code(s): I10 - Essential (primary) hypertension Category: Medical Qualifiers: Hypertension type: essential hypertension Qualified Code(s): I10 - Essential (primary) hypertension Plan: Continue on current blood pressure medication. Avoid salt intake and encourage healthy diet and regular exercise. (4) CAD (coronary artery disease): Comment: Echo on February 2019 EF 55-60%, nuclear stress test March 2019 old intensity septal and apical ischemia, ischemic dilatation present Code(s): I25.10 - Atherosclerotic heart disease of wain[place] coronary artery without angina pectoris Category: Medical Qualifiers: Coronary Disease-Associated Artery/Lesion type: w[place] artery [place] vs. transplanted heart: wainwright heart Associated angina: without angina Qualified Code(s): I25.10 - Atherosclerotic heart disease of [place] coronary artery without angina pectoris Plan: Healthy diet and regular exercise is encouraged. Per Cardiology LDL goal close to 60 mg continue on atorvastatin and aspirin. Advised good control of blood pressure, cholesterol and blood sugars. (5) Type 2 diabetes mellitus with hyperglycemia: Code(s): E11.65 - Type 2 diabetes mellitus with hyperglycemia Category: Medical Qualifiers: Diabetes mellitus penitentiary insulin use: without extermination supervisor use Qualified Code(s): E11.65 - Type 2 diabetes mellitus with hyperglycemia Plan: Decrease the amount of carbohydrates such as pasta, bread, rice, and potatoes and limit the amount of sweets. Although fruits are generally healthy they should be eaten in moderation as they are still high in sugar. Hemoglobin A1c goal of less than 7%. Presently on Farxiga and metformin. At this time patient is having side effects to Farxiga including increased urination and occasional nocturnal shortness of breath. Advised to discontinue Farxiga at this time and stressed the importance of patient reach out if shortness of breath persists as this may not be related to medication side effects. Plan to start on Januvia. I did recommend the use of GLP 1 injections or insulin which patient declines at this time. I did discuss with patient due to coronary artery disease an elevated A1c of 8.4% puts her at risk for heart attack and stroke patient understands and agrees to work on diet as well as starting the new medication. Plan The management plan focuses on modifying the patient?s diabetes treatment by discontinuing the 10 mg dosage of Farxiga due to adverse effects like nocturnal dyspnea and assessing the potential for Januvia, depending on insurance approval. A target A1c of less than 7 will be aimed for, supported by dietary modifications emphasizing low-carbohydrate intake. The patient has been instructed on monitoring blood glucose and keeping a check on symptoms related to her chronic cardiovascular conditions. She will have a follow-up in three months to evaluate glycemic control and any changes in clinical status. This note was constructed using voice recognition software. While every effort has been made to ensure accuracy and instructor of spanish, still areas may have been included sometimes these areas may affect the content or meeting of the given symptoms. Total time spent caring for the patient today was 20 minutes. This includes time spent before the visit reviewing the chart, time spent during the visit, and time spent after the visit and documentation. Orders: Orders AMB Hemoglobin A1c Today E11.65 - Type 2 diabetes mellitus with hyperglycemia B Type Natriuretic Peptide Today E11.65 - Type 2 diabetes mellitus with hyperglycemia Ferritin Today D64.9 - Anemia, unspecified Free T4 (Free Thyroxine) Today E11.65 - Type 2 diabetes mellitus with hyperglycemia IRON PROFILE Today D64.9 - Anemia, unspecified Lipid Panel Today E11.65 - Type 2 diabetes mellitus with hyperglycemia, E78.00 - Pure hypercholesterolemia, unspecified Reticulocyte Count Today D64.9 - Anemia, unspecified Thyroid Stimulating Hormone Today E11.65 - Type 2 diabetes mellitus with hyperglycemia Complete Blood Count Auto Diff Today E11.65 - Type 2 diabetes mellitus with hyperglycemia Creatinine Urine Today E11.65 - Type 2 diabetes mellitus with hyperglycemia Magnesium Today E11.65 - Type 2 diabetes mellitus with hyperglycemia Microalbumin, Random (w Creat) Today E11.65 - Type 2 diabetes mellitus with hyperglycemia Vitamin B12 and Folate Today E11.65 - Type 2 diabetes mellitus with hyperglycemia Vitamin D 25-OH Total Today E11.65 - Type 2 diabetes mellitus with hyperglycemia Medications: New sitagliptin phosphate (Januvia) 25 mg PO DAILY 30 tabs 2RF Refilled ascorbic acid (vitamin C) 500 mg PO BID 180 tabs 3RF Discontinued dapagliflozin propanediol (Farxiga) Discontinued Reason: Patient no longer taking 10 mg PO DAILY 30 tabs 3RF
[2024-11-23 08:36] VITALS: BP 120/72; PULSE 69; TEMP 36.2; O2SAT 96; BMI 39.4
== END 2024-11-23 09:21 | disposition home or self-care (01) ==
LOC: HO.HMCH 08:22
PROVIDERS: PCP Internal Medicine
DX: E11.65 Type 2 diabetes mellitus with hyperglycemia (principal); C54.1 Malignant neoplasm of endometrium; Z68.39 Body mass index [BMI] 39.0-39.9, adult; E66.9 Obesity, unspecified; I10 Essential (primary) hypertension; I25.10 Atherosclerotic heart disease of native coronary artery without angina pectoris

== ENCOUNTER → 2024-11-23 08:22 | Outpatient (BNVA) | payer MEDICARE, SELFPAY | PROVIDERS: PCP Internal Medicine | DX: C54.1 Malignant neoplasm of endometrium (principal); I10 Essential (primary) hypertension; E66.9 Obesity, unspecified; I25.10 Atherosclerotic heart disease of native coronary artery without angina pectoris; E11.65 Type 2 diabetes mellitus with hyperglycemia | CPT/HCPCS: 83036; 99212 ==